=== PATIENT | male | born 1980 | race Caucasian/White ===

== ENCOUNTER 2019-05-24 11:04 | Emergency (ER) | payer SELFPAY ==
[~2019-05-24] VITALS: Ht 185 cm; Wt 113.6 kg
[2019-05-24 11:50] LABS: HEMATOCRIT 44 % (40-54); HEMOGLOBIN 14.9 G/DL (13.3-17.7); MEAN CORPUSCULAR HEMOGLOBIN 31 PG (25-34); MEAN CORPUSCULAR HGB CONC 34 G/DL (32-36); MEAN CORPUSCULAR VOLUME 91 FL (80-99); PLATELET COUNT 240 10^3/uL (130-400); RED CELL DISTRIBUTION WIDTH 13.3 % (10.0-14.5); WHITE BLOOD COUNT 10.7 10^3/uL (4.3-11.0)
[2019-05-24 11:51] LABS: BILIRUBIN,URINE NEGATIVE (NEGATIVE); CLARITY,URINE CLEAR; COLOR,URINE YELLOW; GLUCOSE, URINE (UA) NEGATIVE (NEGATIVE); KETONES,URINE NEGATIVE (NEGATIVE); LEUKOCYTE ESTERASE ,URINE NEGATIVE (NEGATIVE); NITRITE,URINE NEGATIVE (NEGATIVE); PROTEIN,URINE NEGATIVE (NEGATIVE); UROBILINOGEN,URINE 0.2 MG/DL (NORMAL)
[2019-05-24 11:51] LABS: BASOPHILS # (AUTO) 0.1 10^3/uL (0.0-0.1); BASOPHILS % (AUTO) 1 % (0-10); EOSINOPHILS # (AUTO) 0.2 10^3/uL (0.0-0.3); EOSINOPHILS % (AUTO) 2 % (0-10); LYMPHOCYTES # (AUTO) 2.3 X 10^3 (1.0-4.0); LYMPHOCYTES % (AUTO) 22 % (12-44); MEAN PLATELET VOLUME 10.6 FL (7.4-10.4); MONOCYTES # (AUTO) 0.9 X 10^3 (0.0-1.0); MONOCYTES % (AUTO) 9 % (0-12); NEUTROPHILS # (AUTO) 7.1 X 10^3 (1.8-7.8); NEUTROPHILS % (AUTO) 66 % (42-75)
[2019-05-24 11:52] LABS: BACTERIA,URINE NEGATIVE /HPF; RBC,URINE RARE /HPF; SQUAMOUS EPITHELIAL CELL,UR RARE /HPF; WBC,URINE RARE /HPF
[2019-05-24 12:09] LABS: POTASSIUM 4.4 MMOL/L (3.6-5.0)
[2019-05-24 12:10] LABS: CALCIUM 9.3 MG/DL (8.5-10.1); CREATININE SERUM 1.4 MG/DL (0.60-1.30)
[2019-05-24] MEDS ORDERED: KETOROLAC 30 MG/ML VIAL IVP ONE (12:15)
[2019-05-24] MEDS ORDERED: ONDANSETRON 4 MG/2 ML (SDV) Z0FRAN IVP ONE ×2 (12:15→13:45)
[2019-05-24] MEDS ORDERED: HOLD METFORMIN - RECEIVED CONTRAST 20 ML VIAL IV SCH (13:15)
[2019-05-24] MEDS ORDERED: IOHEXOL 350 MG/ML 100 ML (OMNIPAQUE 350) VIAL IV ONE (13:15)
[2019-05-24] MEDS ORDERED: NS 100 ML (IVPB) BAG IV ONE (13:15)
[2019-05-24] MEDS ORDERED: CATHETER FLUSH 10 ML SYR IV PRN (13:15)
[2019-05-24] MEDS ORDERED: morphine INJ 10 MG/ML 1ML (SYR OR VIAL) IVP STA (13:38)
--- NOTE | 2019-05-24 13:48 | Diagnostic Imaging Report ---
PROCEDURE: CT abdomen and pelvis with and without contrast. TECHNIQUE: Precontrast acquisitions were acquired through the abdomen and pelvis. Multiple contiguous axial images were obtained through the abdomen and pelvis after the administration of intravenous contrast. Auto Exposure Controls were utilized during the CT exam to meet ALARA standards for radiation dose reduction. INDICATION: Right flank pain. Patient reportedly has history of kidney stones. COMPARISON: No prior studies are available for comparison. FINDINGS: The lung bases are clear. No discrete liver mass is identified. The gallbladder is unremarkable. No biliary ductal dilatation is seen. The pancreas and spleen are unremarkable. No adrenal mass is detected. There are numerous bilateral nonobstructing renal calculi measuring 3-4 mm in size. In addition, there is moderate right-sided hydroureteronephrosis. The dilated right ureter is traced into the pelvis where there is a 3-4 mm calculus in the distal right ureter just above the UVJ. Delayed images demonstrate delayed excretion of contrast into the right renal collecting system and right ureter consistent with high-grade obstruction. No definite bladder calculi are seen. Aorta is nonaneurysmal. The small and large bowel loops are normal caliber. There is no ascites. Bony structures are nonacute. IMPRESSION: Bilateral nonobstructing nephrolithiasis. In addition, there is a 3-4 mm distal right ureteric calculus producing moderate hydroureteronephrosis. Dictated by: Dictated on workstation # [id number]
--- NOTE | 2019-05-24 14:53 | ED Back Pain ---
General Chief Complaint: Back Problems Stated Complaint: RT FLANK PAIN Nursing Triage Note: RT FLANK PAIN STARTED ABOUT 0200. HX OF A STONE 6 MONTHS AGO. Nursing Sepsis Screen: No Definite Risk Source of Information: Patient Exam Limitations: No Limitations History of Present Illness Date Seen by Provider: May 24, 2019 Time Seen by Provider: 13:00 Initial Comments Patient is a 38-year-old male with history of kidney stones who presents with abrupt onset of right flank pain radiating to right groin. Symptom onset was several hours prior to arrival. Pain is described as dull throbbing rated moderate to severe. It is not improved with position change or movement. Reports nausea without vomiting. No urinary frequency urgency hematuria or dysuria. No fever chills or sweats. No other acute symptoms or complaints. Patient states he has been able to pass prior kidney stones at home and has not required any surgical intervention. Timing/Duration: 1 Hour, 1-3 Hours Severity: Moderate Allergies and Home Medications Allergies Coded Allergies: No Known Drug Allergies (Unverified , 05/24/19) Patient Home Medication List Home Medication List Reviewed: Yes Review of Systems Constitutional: see HPI EENTM: see HPI Respiratory: see HPI Cardiovascular: see HPI Gastrointestinal: see HPI Genitourinary: see HPI Musculoskeletal: see HPI Skin: see HPI Psychiatric/Neurological: See HPI Past Mdjcjfi-Lmnyzb-Ulaivb Hx Past Med/Social Hx: Reviewed Nursing Past Med/Soc Hx Patient Social History Alcohol Use: Denies Use Recreational Drug Use: No Smoking Status: Current Everyday Smoker Type Used: Cigarettes 2nd Hand Smoke Exposure: No Recent Foreign Travel: No Contact w/Someone Who Travel: No Recent Infectious Disease Expo: No Recent Hopitalizations: No Physical Abuse: No Sexual Abuse: No Mistreated: No Fear: No Seasonal Allergies Seasonal Allergies: No Past Medical History Surgeries: No Respiratory: No Cardiac: No Neurological: No Genitourinary: No Gastrointestinal: No Musculoskeletal: No Endocrine: No HEENT: No Cancer: No Psychosocial: No Integumentary: No Blood Disorders: No Physical Exam Vital Signs Vital Signs - First Documented 05/24/19 11:10 Temp 36.8 Pulse 84 Resp 18 B/P (MAP) 144/48 O2 Delivery Room Air Capillary Refill : Less Than 3 Seconds Height, Weight, BMI Height: '" Weight: lbs. oz. kg; 33.00 BMI Method: General Appearance: WD/WN, Moderate Distress HEENT: PERRL/EOMI, Pharynx Normal Neck: Non Tender Cardiovascular: Regular Rate, Rhythm, No Edema Respiratory: Chest Non Tender, Lungs Clear Gastrointestinal: Non Tender, Soft Back: Normal Inspection, No CVA Tenderness, No Vertebral Tenderness Neurologic/Psychiatric: Alert, Oriented x3 Skin: Normal Color, Warm/Dry Progress/Results/Core Measures Results/Orders Lab Results Laboratory Tests Test 05/24/19 11:08 05/24/19 11:35 Range/Units Urine Color YELLOW Urine Clarity CLEAR Urine pH 6.0 5-9 Urine Specific [place] 1.025 H 1.016-1.022 Urine Protein NEGATIVE NEGATIVE Urine Glucose (UA) NEGATIVE NEGATIVE Urine Ketones NEGATIVE NEGATIVE Urine Nitrite NEGATIVE NEGATIVE Urine Bilirubin NEGATIVE NEGATIVE Urine Urobilinogen 0.2 NORMAL MG/DL Urine Leukocyte Esterase NEGATIVE NEGATIVE Urine RBC (Auto) NEGATIVE NEGATIVE Urine RBC RARE /HPF Urine WBC RARE /HPF Urine Squamous Epithelial Cells RARE /HPF Urine Crystals NONE /LPF Urine Bacteria NEGATIVE /HPF Urine Casts NONE /LPF Urine Mucus SMALL H /LPF Urine Culture Indicated NO White Blood Count 10.7 4.3-11.0 10^3/uL Red Blood Count 4.88 4.35-5.85 10^6/uL Hemoglobin 14.9 13.3-17.7 G/DL Hematocrit 44 40-54 % Mean Corpuscular Volume 91 80-99 FL Mean Corpuscular Hemoglobin 31 25-34 PG Mean Corpuscular Hemoglobin Concent 34 32-36 G/DL Red Cell Distribution Width 13.3 10.0-14.5 % Platelet Count 240 130-400 10^3/uL Mean Platelet Volume 10.6 H 7.4-10.4 FL Neutrophils (%) (Auto) 66 42-75 % Lymphocytes (%) (Auto) 22 12-44 % Monocytes (%) (Auto) 9 0-12 % Eosinophils (%) (Auto) 2 0-10 % Basophils (%) (Auto) 1 0-10 % Neutrophils # (Auto) 7.1 1.8-7.8 X 10^3 Lymphocytes # (Auto) 2.3 1.0-4.0 X 10^3 Monocytes # (Auto) 0.9 0.0-1.0 X 10^3 Eosinophils # (Auto) 0.2 0.0-0.3 10^3/uL Basophils # (Auto) 0.1 0.0-0.1 10^3/uL Sodium Level 138 135-145 MMOL/L Potassium Level 4.4 3.6-5.0 MMOL/L Chloride Level 102 98-107 MMOL/L Carbon Dioxide Level 22 21-32 MMOL/L Anion Gap 14 5-14 MMOL/L Blood Urea Nitrogen 19 H 7-18 MG/DL Creatinine 1.40 H 0.60-1.30 MG/DL Estimat Glomerular Filtration Rate 57 BUN/Creatinine Ratio 14 Glucose Level 107 H 70-105 MG/DL Calcium Level 9.3 8.5-10.1 MG/DL My Orders Orders - CRUZ AGEE DO Urinalysis (05/24/19 11:33) Cbc With Automated Diff (05/24/19 11:39) Basic Metabolic Panel (05/24/19 11:39) Ondansetron Injection (Zofran Injectio (05/24/19 12:15) Ketorolac Injection (Toradol Injection) (05/24/19 12:15) Ct Abdomen/Pelvis W Wo (05/24/19 12:59) Iohexol Injection (Omnipaque 350 Mg/Ml 1 (05/24/19 13:15) Received Contrast (Hold Metformin- Contr (05/24/19 13:15) Sodium Chloride Flush (Catheter Flush Sy (05/24/19 13:15) Ns (Ivpb) (Sodium Chloride 0.9% Ivpb Bag (05/24/19 13:15) Morphine Injection (Morphine Injection (05/24/19 13:38) Ondansetron Injection (Zofran Injectio (05/24/19 13:45) Medications Given in ED Current Medications Medications Dose Ordered Sig/Glendy Route Start Time Stop Time Status Last Admin Dose Admin Iohexol 100 ml ONCE ONCE IV 05/24/19 13:15 05/24/19 13:16 DC 05/24/19 13:25 100 ML Ketorolac Tromethamine 15 mg ONCE ONCE IVP 05/24/19 12:15 05/24/19 12:16 DC 05/24/19 12:15 15 MG Ondansetron HCl 4 mg ONCE ONCE IVP 05/24/19 12:15 05/24/19 12:16 DC 05/24/19 12:14 4 MG Ondansetron HCl 4 mg ONCE ONCE IVP 05/24/19 13:45 05/24/19 13:46 DC 05/24/19 14:24 4 MG Sodium Chloride 10 ml NEEDED PRN IV 05/24/19 13:15 05/24/19 13:25 10 ML Sodium Chloride 100 ml ONCE ONCE IV 05/24/19 13:15 05/24/19 13:16 DC 05/24/19 13:25 80 ML Vital Signs/I&O 05/24/19 11:10 Temp 36.8 Pulse 84 Resp 18 B/P (MAP) 144/48 O2 Delivery Room Air Blood Pressure Mean: 80 Departure Communication (Admissions) CT abdomen and pelvis and labs reviewed. 3-4 mm right ureteral stone with moderate hydroureter noted. Patient's symptoms well-controlled with treatment. Recommend supportive care, watchful waiting PCP/urology follow-up as needed. Impression Primary Impression: Back pain Additional Impression: Ureteral stone Disposition: HOME, SELF-CARE Condition: Stable Departure-Patient Inst. Referrals: NO,LOCAL PHYSICIAN (PCP/Family) Primary Care Physician Add. Discharge Instructions: Please increase fluids, strain urine for stone, and take newly prescribed medications as directed. Follow-up with your local PCP or urologist as needed. Return to the ED if new or worsening symptoms All discharge instructions reviewed with patient and/or family. Voiced understanding. Scripts Tamsulosin HCl (Flomax) 0.4 Mg Cap 0.4 MG PO DAILY, #5 CAP Prov: CRUZ AGEE DO 05/24/19 Ondansetron (Ondansetron Odt) 4 Mg Tab.rapdis 4 MG PO Q6H, #10 TAB Prov: CRUZ AGEE DO 05/24/19 Oxycodone HCl/Acetaminophen (Percocet 10-325 mg Tablet) 1 Each Tablet 1 TAB PO Q8H PRN for PAIN-MODERATE MDD 3 TABS for 7 Days, #12 TAB Prov: CRUZ AGEE DO 05/24/19 CRUZ AGEE DO May 24, 2019 14:53
[2019-05-24] MEDS ORDERED: TAMS0.4C98 PO (14:55)
[2019-05-24] MEDS ORDERED: ONDA4TAB11 PO (14:55)
[2019-05-24] MEDS ORDERED: OXYC1TAB12 PO (14:55)
[2019-05-24 15:08] VITALS: BP 131/78
== END 2019-05-24 15:10 | disposition home or self-care (01) ==
LOC: ER FS 11:06
DX: N13.2 Hydronephrosis with renal and ureteral calculous obstruction (principal); F17.210 Nicotine dependence, cigarettes, uncomplicated
CPT/HCPCS: 36415; 74178; 80048; 81000; 85025

== ENCOUNTER 2019-05-26 21:36 | Emergency (ER) | payer SELFPAY ==
[~2019-05-26] VITALS: Ht 187.9 cm; Wt 114.0 kg
[~2019-05-26 21:36] MED LIST: ONDA4TAB11 PO; OXYC1TAB12 PO; TAMS0.4C98 PO
--- NOTE | 2019-05-26 22:09 | ED Abdominal Pain ---
General Chief Complaint: - Urinary Stated Complaint: LOW BACK PAIN, FEVER, TESTICULAR PAIN Source of Information: Patient Exam Limitations: No Limitations History of Present Illness Date Seen by Provider: May 26, 2019 Time Seen by Provider: 21:55 Initial Comments The patient is a pleasant 38-year-old male who presents for evaluation of right flank pain, nausea, and fever. He states that he was diagnosed with a kidney stone 2 days ago and that he was seen in this emergency department. He reports subjective fevers at home as well as waxing and waning pain and nausea. He denies any difficulty urinating. He is alert and oriented 4, calm, and appears to be in no distress. He reports that he was having some radiation of pain to his testicles since his pain began but that he currently has none. He denies any penile discomfort. He had no testicular swelling or redness at any point. He denies gross hematuria, chest pain or shortness of breath, current abdominal pain, current testicular pain, penile discharge, or decreased urination. Timing/Duration: 2-3 Days Severity/Quality: Moderate Location: Flank (right) Radiation: No Radiation Activities at Onset: None Modifying Factors: Improves With Analgesics (help slightly) Associated Symptoms: Nausea/Vomiting Allergies and Home Medications Allergies Coded Allergies: No Known Drug Allergies (Unverified , 05/24/19) Home Medications Ondansetron 4 Mg Tab.rapdis, 4 MG PO Q6H Prescribed by: CRUZ AGEE on 05/24/19 1455 Oxycodone HCl/Acetaminophen 1 Each Tablet, 1 TAB PO Q8H PRN for PAIN-MODERATE Prescribed by: CRUZ AGEE on 05/24/19 1455 Tamsulosin HCl 0.4 Mg Cap, 0.4 MG PO DAILY Prescribed by: CRUZ AGEE on 05/24/19 1455 Patient Home Medication List Home Medication List Reviewed: Yes Review of Systems Review of Systems Constitutional: no symptoms reported EENTM: No Symptoms Reported Respiratory: No Symptoms Reported Cardiovascular: No Symptoms Reported Gastrointestinal: Nausea Genitourinary: Other (testicular discomfort earlier, denies now) Musculoskeletal: back pain (right flank) Skin: no symptoms reported Psychiatric/Neurological: No Symptoms Reported Endocrine: No Symptoms Reported Hematologic/Lymphatic: No Symptoms Reported All Other Systems Reviewed Negative Unless Noted: Yes Past Yippiig-Wcrpqd-Afiqwn Hx Past Med/Social Hx: Reviewed Nursing Past Med/Soc Hx Patient Social History Type Used: Cigarettes 2nd Hand Smoke Exposure: No Recent Foreign Travel: No Contact w/Someone Who Travel: No Recent Hopitalizations: No Seasonal Allergies Seasonal Allergies: No Past Medical History Surgeries: No Respiratory: No Cardiac: No Neurological: No Genitourinary: No Gastrointestinal: No Musculoskeletal: No Endocrine: No HEENT: No Cancer: No Psychosocial: No Integumentary: No Blood Disorders: No Physical Exam Vital Signs Vital Signs - First Documented 05/26/19 22:25 Temp 36.7 Pulse 99 Resp 18 B/P (MAP) 154/95 (114) Pulse Ox 96 O2 Delivery Room Air Capillary Refill : Height/Weight/BMI Height: '" Weight: lbs. oz. 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, no motor/sensory deficits, alert, normal mood/affect, oriented x 3 Skin: normal color, warm/dry Progress/Results/Core Measures Results/Orders Lab Results Laboratory Tests Test 05/26/19 22:15 Range/Units White Blood Count 10.2 4.3-11.0 10^3/uL Red Blood Count 4.95 4.35-5.85 10^6/uL Hemoglobin 15.1 13.3-17.7 G/DL Hematocrit 45 40-54 % Mean Corpuscular Volume 90 80-99 FL Mean Corpuscular Hemoglobin 31 25-34 PG Mean Corpuscular Hemoglobin Concent 34 32-36 G/DL Red Cell Distribution Width 13.3 10.0-14.5 % Platelet Count 227 130-400 10^3/uL Mean Platelet Volume 10.8 H 7.4-10.4 FL Neutrophils (%) (Auto) 72 42-75 % Lymphocytes (%) (Auto) 19 12-44 % Monocytes (%) (Auto) 6 0-12 % Eosinophils (%) (Auto) 2 0-10 % Basophils (%) (Auto) 1 0-10 % Neutrophils # (Auto) 7.3 1.8-7.8 X 10^3 Lymphocytes # (Auto) 2.0 1.0-4.0 X 10^3 Monocytes # (Auto) 0.6 0.0-1.0 X 10^3 Eosinophils # (Auto) 0.2 0.0-0.3 10^3/uL Basophils # (Auto) 0.1 0.0-0.1 10^3/uL Urine Color YELLOW Urine Clarity CLEAR Urine pH 7.0 5-9 Urine Specific [place] 1.025 H 1.016-1.022 Urine Protein NEGATIVE NEGATIVE Urine Glucose (UA) NEGATIVE NEGATIVE Urine Ketones NEGATIVE NEGATIVE Urine Nitrite NEGATIVE NEGATIVE Urine Bilirubin NEGATIVE NEGATIVE Urine Urobilinogen 0.2 NORMAL MG/DL Urine Leukocyte Esterase NEGATIVE NEGATIVE Urine RBC (Auto) NEGATIVE NEGATIVE Urine RBC 0-2 /HPF Urine WBC 0-2 /HPF Urine Squamous Epithelial Cells RARE /HPF Urine Crystals NONE /LPF Urine Bacteria NEGATIVE /HPF Urine Casts NONE /LPF Urine Mucus NEGATIVE /LPF Urine Culture Indicated NO Sodium Level 135 135-145 MMOL/L Potassium Level 4.0 3.6-5.0 MMOL/L Chloride Level 98 98-107 MMOL/L Carbon Dioxide Level 23 21-32 MMOL/L Anion Gap 14 5-14 MMOL/L Blood Urea Nitrogen 17 7-18 MG/DL Creatinine 1.46 H 0.60-1.30 MG/DL Estimat Glomerular Filtration Rate 55 BUN/Creatinine Ratio 12 Glucose Level 144 H 70-105 MG/DL Calcium Level 9.3 8.5-10.1 MG/DL Corrected Calcium 9.2 8.5-10.1 MG/DL Total Bilirubin 0.3 0.1-1.0 MG/DL Aspartate Amino Transf (AST/SGOT) 21 5-34 U/L Alanine Aminotransferase (ALT/SGPT) 24 0-55 U/L Alkaline Phosphatase 70 40-136 U/L Total Protein 7.5 6.4-8.2 GM/DL Albumin 4.1 3.2-4.5 GM/DL Lipase 13 8-78 U/L My Orders Orders - ERIBERTO ZAZUETA DO Ua Culture If Indicated (05/26/19 21:52) Cbc With Automated Diff (05/26/19 22:02) Comprehensive Metabolic Panel (05/26/19 22:02) Ed Iv/Invasive Line Start (05/26/19 22:02) Lipase (05/26/19 22:02) Ct Abdomen/Pelvis Wo (05/26/19 22:02) Ns Iv 1000 Ml (Sodium Chloride 0.9%) (05/26/19 22:15) Tamsulosin Capsule (Flomax Capsule) (05/27/19 18:00) Ketorolac Injection (Toradol Injection) (05/26/19 22:15) Ondansetron Injection (Zofran Injectio (05/26/19 22:15) Tamsulosin Capsule (Flomax Capsule) (05/26/19 22:37) Medications Given in ED Current Medications Medications Dose Ordered Sig/Glendy Route Start Time Stop Time Status Last Admin Dose Admin Ketorolac Tromethamine 30 mg ONCE ONCE IVP 05/26/19 22:15 05/26/19 22:16 DC 05/26/19 22:20 30 MG Ondansetron HCl 4 mg ONCE ONCE IVP 05/26/19 22:15 05/26/19 22:16 DC 05/26/19 22:20 4 MG Vital Signs/I&O 05/26/19 22:25 Temp 36.7 Pulse 99 Resp 18 B/P (MAP) 154/95 (114) Pulse Ox 96 O2 Delivery Room Air 05/27/19 00:00 Intake Total 1000 ml Balance 1000 ml Progress Progress Note : Progress Note @0039 - patient updated on lab and imaging results which do not suggest any infection. He has a right-sided 4 mm stone which is 1.2 cm from the UV junction. This is causing moderate hydronephrosis. The patient states that he is feeling better on like to go home. Advise close follow-up with his urologist and her PCP and return to the emergency Department immediately for new or worsening symptoms. The patient is stable for discharge at this time. Departure Impression Primary Impression: Ureteral calculus, right Additional Impression: Nausea Disposition: 01 HOME, SELF-CARE Condition: Stable Departure-Patient Inst. Decision time for Depature: 00:40 Referrals: NO,LOCAL PHYSICIAN (PCP/Family) Primary Care Physician Patient Instructions: Kidney Stones in Adults Add. Discharge Instructions: Follow-up with your PCP and/or urology in the next 1-2 days. Return to the emergency Department immediately for new or worsening symptoms. Take the prescribed medicine as directed. ERIBERTO ZAZUETA DO May 26, 2019 22:09
[2019-05-26] MEDS ORDERED: NS IV 1000 ML 1,000 ML IV SCH (22:15)
[2019-05-26] MEDS ORDERED: ONDANSETRON 4 MG/2 ML (SDV) Z0FRAN IVP ONE (22:15)
[2019-05-26] MEDS ORDERED: KETOROLAC 30 MG/ML VIAL IVP ONE (22:15)
[2019-05-26 22:28] LABS: HEMATOCRIT 45 % (40-54); HEMOGLOBIN 15.1 G/DL (13.3-17.7); MEAN CORPUSCULAR HEMOGLOBIN 31 PG (25-34); MEAN CORPUSCULAR VOLUME 90 FL (80-99); WHITE BLOOD COUNT 10.2 10^3/uL (4.3-11.0)
[2019-05-26 22:29] LABS: BASOPHILS # (AUTO) 0.1 10^3/uL (0.0-0.1); BASOPHILS % (AUTO) 1 % (0-10); CLARITY,URINE CLEAR; COLOR,URINE YELLOW; EOSINOPHILS # (AUTO) 0.2 10^3/uL (0.0-0.3); EOSINOPHILS % (AUTO) 2 % (0-10); LYMPHOCYTES % (AUTO) 19 % (12-44); MEAN CORPUSCULAR HGB CONC 34 G/DL (32-36); MEAN PLATELET VOLUME 10.8 FL (7.4-10.4); MONOCYTES # (AUTO) 0.6 X 10^3 (0.0-1.0); MONOCYTES % (AUTO) 6 % (0-12); NEUTROPHILS # (AUTO) 7.3 X 10^3 (1.8-7.8); NEUTROPHILS % (AUTO) 72 % (42-75); PLATELET COUNT 227 10^3/uL (130-400); RED CELL DISTRIBUTION WIDTH 13.3 % (10.0-14.5)
[2019-05-26 22:35] LABS: GLUCOSE, URINE (UA) NEGATIVE (NEGATIVE); PROTEIN,URINE NEGATIVE (NEGATIVE)
[2019-05-26 22:36] LABS: BACTERIA,URINE NEGATIVE /HPF; BILIRUBIN,URINE NEGATIVE (NEGATIVE); KETONES,URINE NEGATIVE (NEGATIVE); LEUKOCYTE ESTERASE ,URINE NEGATIVE (NEGATIVE); NITRITE,URINE NEGATIVE (NEGATIVE); RBC,URINE 0-2 /HPF; SQUAMOUS EPITHELIAL CELL,UR RARE /HPF; UROBILINOGEN,URINE 0.2 MG/DL (NORMAL); WBC,URINE 0-2 /HPF
[2019-05-26] MEDS ORDERED: TAMSULOSIN 0.4 MG (FLOMAX) CAP PO ONE (22:37)
[2019-05-26 22:48] LABS: ALBUMIN 4.1 GM/DL (3.2-4.5); BILIRUBIN,TOTAL 0.3 MG/DL (0.1-1.0); CALCIUM 9.3 MG/DL (8.5-10.1); CREATININE SERUM 1.46 MG/DL (0.60-1.30); TOTAL PROTEIN 7.5 GM/DL (6.4-8.2)
[2019-05-27 00:47] VITALS: BP 136/88
--- NOTE | 2019-05-27 06:15 | Diagnostic Imaging Report ---
PROCEDURE: CT abdomen and pelvis without contrast. TECHNIQUE: Multiple contiguous axial images were obtained through the abdomen and pelvis without the use of intravenous contrast. Auto Exposure Controls were utilized during the CT exam to meet ALARA standards for radiation dose reduction. INDICATION: Right-sided pain The recent CT abdomen/pelvis exam of 05/24/2019 noted that there was partial obstruction of the right collecting system due to a 3.1 mm calculus in the distal right ureter. It previously also revealed nonobstructive calculi within both kidneys. On this exam, the obstructive calculus involving the distal right ureter now measures approximately 4 mm in size. The reason for the change in the size of this calculus is not certain. There does not appear to be any significant change in the degree of obstruction of the right collecting system, however. There has been no increase in the perinephric stranding or of the dilatation of the right renal pelvis since the prior exam. The left kidney is stable as well. The overall appearance of the abdomen and pelvis is also essentially no different than the prior exam. No new abnormality has developed. The lung bases remain clear. The bone windows show no evidence for a fracture or for a destructive lesion. IMPRESSION: 1. The obstructing calculus involving the distal right ureter seen on the recent exam is again evident. The calculus does measure slightly larger than on the prior study but there does not appear to have been any significant increase in the degree of obstruction of the right collecting system. 2. There is no acute abnormality identified otherwise. Dictated by: Dictated on workstation # [id number]
[2019-05-27] MEDS ORDERED: TAMSULOSIN 0.4 MG (FLOMAX) CAP PO SCH (18:00)
== END 2019-05-27 00:46 | disposition home or self-care (01) ==
LOC: EDUNIT# 21:36 → ER FS 21:38
DX: N13.2 Hydronephrosis with renal and ureteral calculous obstruction (principal); R11.0 Nausea
CPT/HCPCS: 36415; 74176; 80053; 81000; 83690; 85025; 96361; 96374; 96375

== ENCOUNTER 2019-12-26 19:53 | Emergency (ER) | payer SELFPAY ==
[~2019-12-26 19:53] MED LIST changes: -TAMS0.4C98 PO; +TMSL.4C PO
--- NOTE | 2019-12-26 20:21 | ED Cough/URI ---
General Chief Complaint: Cough/Cold/Flu Symptoms Stated Complaint: COUGH Nursing Triage Note: Patient states that he has been having a cough and shortness of breath about a week. Patient also states that he is coughing up green thick mucus. Patient does not report a fever but does report a headache behind the eyes. Sepsis Screen: No Definite Risk History of Present Illness Date Seen by Provider: Dec 26, 2019 Time Seen by Provider: 20:25 Initial Comments Patient is an otherwise healthy 39-year-old male who comes to the emergency department today complaining of suspected sinusitis. Patient states he has these symptoms about 2-3 times annually. He complains of feeling ill over the last week. He has had a cough which has sometimes been productive. He complains of sinus pain over the frontal and maxillary sinuses as well as postnasal drip. No documented fever but he has had some chills. No recent travel. No known COVID exposure that he is aware of. Allergies and Home Medications Allergies Coded Allergies: codeine (Verified Allergy, Intermediate, 12/26/19) erythromycin base (Verified Allergy, Unknown, 12/26/19) Home Medications Amoxicillin/Potassium Clav 1 Each Tablet, 1 EACH PO BID Prescribed by: DONAVAN THOMAS on 12/26/192023 Ondansetron 4 Mg Tab.rapdis, 4 MG PO Q6H Prescribed by: CRUZ AGEE on 05/24/19 145 Oxycodone HCl/Acetaminophen 1 Each Tablet, 1 TAB PO Q8H PRN for PAIN-MODERATE Prescribed by: CRUZ AGEE on 05/24/19 145 Tamsulosin HCl 0.4 Mg Cap, 0.4 MG PO DAILY Prescribed by: CRUZ AGEE on 05/24/19 1455 Patient Home Medication List Home Medication List Reviewed: Yes Review of Systems Review of Systems Constitutional: see HPI EENTM: see HPI Respiratory: see HPI Cardiovascular: no symptoms reported Gastrointestinal: no symptoms reported Musculoskeletal: no symptoms reported Skin: no symptoms reported All Other Systems Reviewed Negative Unless Noted: Yes Past Khljmff-Jpikdo-Stciyr Hx Patient Social History Alcohol Use: Denies Use Recreational Drug Use: No Smoking Status: Current Everyday Smoker Type Used: Cigarettes 2nd Hand Smoke Exposure: No Recent Foreign Travel: No Contact w/Someone Who Travel: No Recent Infectious Disease Expo: No Recent Hopitalizations: No Physical Abuse: No Sexual Abuse: No Mistreated: No Fear: No Seasonal Allergies Seasonal Allergies: No Past Medical History Surgeries: No Respiratory: No Cardiac: No Neurological: No Genitourinary: No Gastrointestinal: No Musculoskeletal: No Endocrine: No HEENT: No Cancer: No Psychosocial: No Integumentary: No Blood Disorders: No Physical Exam Vital Signs - First Documented 12/26/19 19:53 Temp 36.4 Pulse 113 Resp 20 B/P (MAP) 133/90 (104) Pulse Ox 95 O2 Delivery Room Air Capillary Refill : Less Than 3 Seconds Height: '" Weight: lbs. oz. 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, alert, normal mood/affect, oriented x 3 Skin: normal color Progress/Results/Core Measures Suspected Sepsis Recent Fever Within 48 Hours: No Infection Criteria Present: Suspected New Infection New/Unexplained Altered Menta: No Sepsis Screen: No Definite Risk SIRS Temperature: Pulse: 113 Respiratory Rate: 20 Blood Pressure 133 /90 Mean: 104 Results/Orders My Orders Orders - DONAVAN THOMAS DO Amoxicillin/Clavulanate Tablet (Augmenti (12/26/19 20:30) Vital Signs/I&O 12/26/19 19:53 Temp 36.4 Pulse 113 Resp 20 B/P (MAP) 133/90 (104) Pulse Ox 95 O2 Delivery Room Air Capillary Refill : Less Than 3 Seconds Blood Pressure Mean: 104 Progress Note : Time: 20:27 Progress Note ED summary: Patient is seen in the emergency department briefly for sinusitis- like symptoms. His lungs are clear with no increased work of breathing and good air movement in all mukherjee. He does have some tenderness to palpate over the frontal and maxillary sinuses. Posterior oropharynx does reveal some postnasal drip but no exudates are tonsillar hypertrophy. Patient is overall not ill- appearing and afebrile this evening. He is normally treated with amoxicillin for sinusitis. He is given a dose of Augmentin in the ER and discharged home with the same. Recommended that he follow up with his primary care doctor. Departure Impression Primary Impression: Sinusitis Disposition: HOME, SELF-CARE Condition: Stable Departure-Patient Inst. Referrals: NO,LOCAL PHYSICIAN (PCP/Family) Primary Care Physician Scripts Amoxicillin/Potassium Clav (Augmentin 875-125 Tablet) 1 Each Tablet 1 EACH PO BID, #20 TAB 0 Refills Prov: DONAVAN THOMAS DO 12/26/19 DONAVAN THOMAS DO Dec 26, 2019 20:21
[2019-12-26] MEDS ORDERED: AMOX-358 PO (20:24)
[2019-12-26] MEDS ORDERED: AUGMENTIN 875 MG TAB (AMOXICILLIN/CLAVULANATE) PO ONE (20:30)
[2019-12-26 20:31] VITALS: BP 133/90
== END 2019-12-26 20:31 | disposition home or self-care (01) ==
LOC: EDUNIT# 19:53 → ER FS 19:55
DX: J32.9 Chronic sinusitis, unspecified (principal); F17.210 Nicotine dependence, cigarettes, uncomplicated; Z88.5 Allergy status to narcotic agent; Z88.1 Allergy status to other antibiotic agents
CPT/HCPCS: 99283

== ENCOUNTER 2020-06-08 08:38 | Emergency (ER) | payer SELFPAY ==
[~2020-06-08 08:38] MED LIST changes: +AMOX-358 PO
[2020-06-08] MEDS ORDERED: NS IV 1000 ML 1,000 ML IV SCH (09:00)
--- NOTE | 2020-06-08 09:09 | Diagnostic Imaging Report ---
INDICATION: Exertional dyspnea and dizziness Portable AP view of the chest is obtained. COMPARISON: No previous study is available for comparison at this time. FINDINGS: Heart size and pulmonary vasculature are within normal limits, and the lungs are clear, bilaterally. IMPRESSION: Unremarkable chest. Dictated by: Dictated on workstation # [id number]
[2020-06-08 09:10] VITALS: BP_SYST 128; BP_SYST 129; BP_SYST 131; BP_DIAS 74; BP_DIAS 86; BP_DIAS 89
[2020-06-08 09:17] LABS: WHITE BLOOD COUNT 5.5 10^3/uL (4.3-11.0)
[2020-06-08 09:18] LABS: BASOPHILS % (AUTO) 1 % (0-10); EOSINOPHILS # (AUTO) 0.2 10^3/uL (0.0-0.3); EOSINOPHILS % (AUTO) 3 % (0-10); HEMATOCRIT 45 % (40-54); HEMOGLOBIN 15.1 G/DL (13.3-17.7); LYMPHOCYTES # (AUTO) 1.9 X 10^3 (1.0-4.0); LYMPHOCYTES % (AUTO) 35 % (12-44); MEAN CORPUSCULAR HEMOGLOBIN 30 PG (25-34); MEAN CORPUSCULAR HGB CONC 33 G/DL (32-36); MEAN CORPUSCULAR VOLUME 91 FL (80-99); MEAN PLATELET VOLUME 10.9 FL (7.4-10.4); MONOCYTES # (AUTO) 0.6 X 10^3 (0.0-1.0); MONOCYTES % (AUTO) 11 % (0-12); NEUTROPHILS # (AUTO) 2.6 X 10^3 (1.8-7.8); NEUTROPHILS % (AUTO) 50 % (42-75); PLATELET COUNT 261 10^3/uL (130-400)
--- NOTE | 2020-06-08 09:19 | ED General ---
General Chief Complaint: Dizziness/Syncope Stated Complaint: LIGHT-HEADED; DIZZY; SOB; ALTERED VISION Nursing Triage Note: Started feeling dizzy and lightheaded yesterday. States he has had issues with blood pressure and blood sugar in the past. Denies nausea or vomiting, or fevers. Nursing Sepsis Screen: No Definite Risk Source of Information: Patient Exam Limitations: No Limitations History of Present Illness Date Seen by Provider: Jun 08, 2020 Time Seen by Provider: 08:48 Initial Comments The patient is a pleasant 40-year-old male who presents for evaluation of lightheadedness and some general malaise since yesterday. He reports some exertional dyspnea which she states is new over the last few days. He also states that he has been having issues with his blood pressure and his blood sugar. He reports that he normally only eats food one time per day and that this has not recently changed. He thought that his blood sugar might be low today so he drank some orange juice to see if this would help. His Accu-Chek upon arrival is 116. He reports that he has been told that he has hypertension in the past but has never been prescribed medication. He reports some slightly blurred vision yesterday but none currently. He is alert and oriented 4, calm, and appears to be in no distress. He denies rigors or chills, neck pain or neck stiffness, loss of taste or smell, productive cough, abdominal or back pain, urinary complaints, Timing/Duration: 1-2 Days Severity: Mild Associated Systoms: Shortness of Air, Weakness Allergies and Home Medications Allergies Coded Allergies: codeine (Verified Allergy, Intermediate, 12/26/19) erythromycin base (Verified Allergy, Unknown, 12/26/19) Home Medications Amoxicillin/Potassium Clav 1 Each Tablet, 1 EACH PO BID Prescribed by: DONAVAN THOMAS on 12/26/192023 Ondansetron 4 Mg Tab.rapdis, 4 MG PO Q6H Prescribed by: CRUZ AGEE on 05/24/191454 Oxycodone HCl/Acetaminophen 1 Each Tablet, 1 TAB PO Q8H PRN for PAIN-MODERATE Prescribed by: CRUZ AGEE on 05/24/191454 Tamsulosin HCl 0.4 Mg Cap, 0.4 MG PO DAILY Prescribed by: CRUZ AGEE on 05/24/191454 Patient Home Medication List Home Medication List Reviewed: Yes Review of Systems Review of Systems Constitutional: dizziness, weakness EENTM: no symptoms reported Respiratory: cough (chronic ), short of breath Cardiovascular: no symptoms reported Gastrointestinal: no symptoms reported Genitourinary: no symptoms reported Musculoskeletal: no symptoms reported Skin: no symptoms reported Psychiatric/Neurological: No Symptoms Reported Hematologic/Lymphatic: No Symptoms Reported Immunological/Allergic: no symptoms reported All Other Systems Reviewed Negative Unless Noted: Yes Past Tnuwtti-Ykjeky-Pefdjh Hx Past Med/Social Hx: Reviewed Nursing Past Med/Soc Hx Patient Social History Alcohol Use: Denies Use Recreational Drug Use: No Smoking Status: Current Everyday Smoker Type Used: Cigarettes 2nd Hand Smoke Exposure: No Recent Foreign Travel: No Contact w/Someone Who Travel: No Recent Infectious Disease Expo: No Recent Hopitalizations: No Seasonal Allergies Seasonal Allergies: No Past Medical History Surgeries: No Respiratory: Yes (chronic cough) Cardiac: Yes Hypertension Neurological: No Genitourinary: No Gastrointestinal: No Musculoskeletal: No Endocrine: Yes (hypoglycemia) HEENT: No Cancer: No Psychosocial: No Integumentary: No Blood Disorders: No Physical Exam Vital Signs Vital Signs - First Documented 06/08/20 08:43 Temp 36.4 Pulse 87 Resp 16 B/P (MAP) 150/92 (111) Pulse Ox 96 Capillary Refill : Less Than 3 Seconds Height, Weight, BMI Height: '" Weight: lbs. oz. kg; 32.00 BMI Method: General Appearance: No Apparent Distress, WD/WN Eyes: Bilateral Eye Normal Inspection, Bilateral Eye PERRL, Bilateral Eye EOMI HEENT: PERRL/EOMI, TMs Normal, Pharynx Normal Neck: Full Range of Motion, Non Tender, Supple Respiratory: Lungs Clear, No Respiratory Distress Cardiovascular: Regular Rate, Rhythm, No Edema, No Murmur, Normal Peripheral Pulses Gastrointestinal: Normal Bowel Sounds, Non Tender, Soft Extremity: Normal Capillary Refill, Normal Inspection, Normal Range of Motion, No Pedal Edema Neurologic/Psychiatric: Alert, Oriented x3, No Motor/Sensory Deficits, Normal Mood/Affect, 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 as Tested Skin: Normal Color, Warm/Dry Progress/Results/Core Measures Suspected Sepsis Recent Fever Within 48 Hours: No Infection Criteria Present: None New/Unexplained Altered Menta: No Sepsis Screen: No Definite Risk SIRS Temperature: Pulse: 87 Respiratory Rate: 16 Laboratory Tests 9/24/20 08:59: White Blood Count 5.5 Blood Pressure 150 /92 Mean: 111 Laboratory Tests 06/08/20 08:59: Creatinine 0.93, Platelet Count 261, Total Bilirubin 0.2 Results/Orders Lab Results Laboratory Tests Test 06/08/20 08:49 06/08/20 08:59 Range/Units Glucometer 116 H 70-110 MG/DL White Blood Count 5.5 4.3-11.0 10^3/uL Red Blood Count 5.00 4.35-5.85 10^6/uL Hemoglobin 15.1 13.3-17.7 G/DL Hematocrit 45 40-54 % Mean Corpuscular Volume 91 80-99 FL Mean Corpuscular Hemoglobin 30 25-34 PG Mean Corpuscular Hemoglobin Concent 33 32-36 G/DL Red Cell Distribution Width 13.9 10.0-14.5 % Platelet Count 261 130-400 10^3/uL Mean Platelet Volume 10.9 H 7.4-10.4 FL Neutrophils (%) (Auto) 50 42-75 % Lymphocytes (%) (Auto) 35 12-44 % Monocytes (%) (Auto) 11 0-12 % Eosinophils (%) (Auto) 3 0-10 % Basophils (%) (Auto) 1 0-10 % Neutrophils # (Auto) 2.6 1.8-7.8 X 10^3 Lymphocytes # (Auto) 1.9 1.0-4.0 X 10^3 Monocytes # (Auto) 0.6 0.0-1.0 X 10^3 Eosinophils # (Auto) 0.2 0.0-0.3 10^3/uL Basophils # (Auto) 0.0 0.0-0.1 10^3/uL Sodium Level 138 135-145 MMOL/L Potassium Level 4.5 3.6-5.0 MMOL/L Chloride Level 105 98-107 MMOL/L Carbon Dioxide Level 23 21-32 MMOL/L Anion Gap 10 5-14 MMOL/L Blood Urea Nitrogen 21 H 7-18 MG/DL Creatinine 0.93 0.60-1.30 MG/DL Estimat Glomerular Filtration Rate > 60 BUN/Creatinine Ratio 23 Glucose Level 123 H 70-105 MG/DL Calcium Level 9.4 8.5-10.1 MG/DL Corrected Calcium 9.0 8.5-10.1 MG/DL Total Bilirubin 0.2 0.1-1.0 MG/DL Aspartate Amino Transf (AST/SGOT) 29 5-34 U/L Alanine Aminotransferase (ALT/SGPT) 37 0-55 U/L Alkaline Phosphatase 83 40-136 U/L Troponin I 0.30 <0.30 NG/ML Pro-B-Type Natriuretic Peptide 20.8 <75.0 PG/ML Total Protein 7.6 6.4-8.2 GM/DL Albumin 4.5 3.2-4.5 GM/DL My Orders Orders - ERIBERTO ZAZUETA DO Cbc With Automated Diff (06/08/20 08:52) Comprehensive Metabolic Panel (06/08/20 08:52) Continuous Ekg Monitoring (06/08/20 08:52) Ekg Tracing (06/08/20 08:52) Troponin I Fs (06/08/20 08:52) Probnp Fs (06/08/20 08:52) Chest 1 View Ap/Pa Only (06/08/20 08:52) Ns Iv 1000 Ml (Sodium Chloride 0.9%) (06/08/20 09:00) Vital Signs/I&O 06/08/20 06/08/20 08:43 09:10 Temp 36.4 Pulse 87 78 88 91 Resp 16 B/P (MAP) 150/92 (111) 128/74 (92) 131/86 (101) 129/89 (102) Pulse Ox 96 Capillary Refill : Less Than 3 Seconds Blood Pressure Mean: 111 Progress Note : Progress Note @1010 - patient updated on lab and imaging results which are acutely unremarkable. There is some evidence of mild dehydration. Part of the patient's symptoms are likely caused by his eating only one time per day and having episodic hypoglycemia as well as some dehydration. Advised the patient to try to eat any more balanced way around the day to try to prevent hypoglycemic episodes. Also advised the patient to drink more water. Workup today fails reveal any emergent pathology. Advised patient to follow up with his PCP in the next 2-3 days and to return to the emergency Department immediately for new or worsening symptoms. The patient's blood pressure at discharge is 130/81. No indication for starting the patient on blood pressure medication at this time. Advised returning to the emergency Department immediately for new or worsening symptoms. The patient expresses verbal understanding and agreement with the plan and is stable for discharge. ECG Comment @0850 - Normal sinus rhythm, rate of 78, normal axis, no acute ischemic fin dings noted, no STEMI, reviewed and interpreted by myself Departure Impression Primary Impression: Light-headed feeling Additional Impression: Tobacco abuse Disposition: 01 HOME, SELF-CARE Condition: Stable Departure-Patient Inst. Decision time for Depature: 10:16 Referrals: NO,LOCAL PHYSICIAN (PCP/Family) Primary Care Physician Patient Instructions: Dehydration, Adult (DC), Dizziness, Nonvertigo, (DC), HYPOGLYCEMIA, SMOKING CESSATION Add. Discharge Instructions: Follow-up with your doctor in the next 2-3 days. Drink plenty of water to stay well-hydrated. Try to eat multiple meals throughout the day to reduce the chances that her blood sugar goes to low. Return to the emergency Department immediately for new or worsening symptoms. Stop smoking cigarettes. ERIBERTO ZAZUETA DO Jun 08, 2020 09:19
--- NOTE | 2020-06-08 09:34 | NUR ---
Pt stated that he was dizzy when going from lying to sitting during orthostatic vital signs. No signficiant changes in vital signs when changing positions. Dr. Canseco was notified about vital signs.
[2020-06-08 09:37] LABS: CARBON DIOXIDE 23 MMOL/L (21-32); CHLORIDE 105 MMOL/L (98-107); POTASSIUM 4.5 MMOL/L (3.6-5.0); SODIUM 138 MMOL/L (135-145)
[2020-06-08 09:38] LABS: ALANINE AMINOTRANSFERASE 37 U/L (0-55); ALBUMIN 4.5 GM/DL (3.2-4.5); ALKALINE PHOSPHATASE 83 U/L (40-136); BILIRUBIN,TOTAL 0.2 MG/DL (0.1-1.0); BUN/CREATININE RATIO 23; CALCIUM 9.4 MG/DL (8.5-10.1); CREATININE SERUM 0.93 MG/DL (0.60-1.30); GFR ESTIMATED > 60; GLUCOSE 123 MG/DL (70-105); TOTAL PROTEIN 7.6 GM/DL (6.4-8.2)
[2020-06-08 10:23] VITALS: BP 125/87
== END 2020-06-08 10:23 | disposition home or self-care (01) ==
LOC: EDUNIT# 08:38 → ER FS 08:39
DX: R42 Dizziness and giddiness (principal); I10 Essential (primary) hypertension; F17.210 Nicotine dependence, cigarettes, uncomplicated; Z88.5 Allergy status to narcotic agent; Z88.1 Allergy status to other antibiotic agents
CPT/HCPCS: 36415; 71045; 80053; 82962; 83880; 84484; 85025; 93005

== ENCOUNTER 2020-08-01 07:22 | Emergency (ER) | payer SELFPAY ==
[~2020-08-01] VITALS: Ht 185.5 cm; Wt 114.0 kg
[2020-08-01] MEDS ORDERED: ONDANSETRON 4 MG (ZOFRAN) ORAL DISSOLVE TAB PO STA (07:40)
[2020-08-01] MEDS ORDERED: KETOROLAC 60 MG/2 ML VIAL IM ONE (07:45)
[2020-08-01 07:52] LABS: CLARITY,URINE CLEAR; COLOR,URINE YELLOW
[2020-08-01 07:53] LABS: BACTERIA,URINE NEGATIVE /HPF; BILIRUBIN,URINE NEGATIVE (NEGATIVE); GLUCOSE, URINE (UA) NEGATIVE (NEGATIVE); KETONES,URINE NEGATIVE (NEGATIVE); LEUKOCYTE ESTERASE ,URINE NEGATIVE (NEGATIVE); NITRITE,URINE NEGATIVE (NEGATIVE); PROTEIN,URINE NEGATIVE (NEGATIVE); RBC,URINE RARE /HPF; WBC,URINE 0-2 /HPF
--- NOTE | 2020-08-01 08:07 | Diagnostic Imaging Report ---
EXAMINATION: CT Abdomen Pelvis without contrast. TECHNIQUE: Multiple contiguous axial images were obtained through the abdomen and pelvis without the use of intravenous contrast. All CT scans use one or more of the following dose optimizing techniques: automated exposure control, MA and/or KvP adjustment based on a patient size and exam type, or iterative reconstruction. HISTORY: Flank pain COMPARISON: 05/26/2019 FINDINGS: Limited views of the lower thorax are unremarkable. The liver is normal without focal lesion. There is no biliary ductal dilation. Gallbladder is normal. Pancreas is normal. Spleen is normal. Adrenal glands are normal. There is one right-sided and three left-sided renal stones. The largest on the left measures 4 mm and is unchanged. The right-sided stone measures 2 mm and is similar to previous exam. There are no ureteral stones. There is no hydronephrosis. Urinary bladder is normal. There is a small fat-containing right inguinal hernia. Visualized bowel is normal in caliber without obstruction or inflammation. The appendix is normal. No free fluid or air. No abdominal or pelvic lymphadenopathy. Aorta is normal in caliber without aneurysm. There are no suspicious osseus lesions. IMPRESSION: 1. Bilateral nonobstructing renal stones, no ureteral calculi. Dictated by: Dictated on workstation # [id number]
--- NOTE | 2020-08-01 08:17 | ED General ---
General Chief Complaint: Back Problems Stated Complaint: LWR BACK PAIN; KERRY FLANK PAIN Nursing Triage Note: Patient reports right flank pain and lower back pain for several days, states he has had kidney stones in the past. Nursing Sepsis Screen: No Definite Risk Source of Information: Patient Exam Limitations: No Limitations History of Present Illness Date Seen by Provider: Aug 01, 2020 Time Seen by Provider: 07:30 Initial Comments Patient is 32-year-old male with history of kidney stones and mechanical back pain. He presents with right flank pain which is not radiating. Described as dull worse with palpation and movement. He denies urinary frequency urgency decreased urinary output or hematuria. No testicular pain, tenderness, swelling or masses. No nausea vomiting. No fever chills or sweats. Allergies and Home Medications Allergies Coded Allergies: codeine (Verified Allergy, Intermediate, 12/26/19) erythromycin base (Verified Allergy, Unknown, 12/26/19) Home Medications Amoxicillin/Potassium Clav 1 Each Tablet, 1 EACH PO BID Prescribed by: DONAVAN THOMAS on 12/26/192023 Cyclobenzaprine HCl 10 Mg Tablet, 10 MG PO Q8H PRN for SPASMS Prescribed by: CRUZ AGEE on 08/01/20 0843 Ondansetron 4 Mg Tab.rapdis, 4 MG PO Q6H Prescribed by: CRUZ AGEE on 05/24/19 1455 Oxycodone HCl/Acetaminophen 1 Each Tablet, 1 TAB PO Q8H PRN for PAIN-MODERATE Prescribed by: CRUZ AGEE on 05/24/19 1455 Tamsulosin HCl 0.4 Mg Cap, 0.4 MG PO DAILY Prescribed by: CRUZ AGEE on 05/24/19 1455 Patient Home Medication List Home Medication List Reviewed: Yes Review of Systems Review of Systems Constitutional: no symptoms reported EENTM: no symptoms reported Respiratory: no symptoms reported Cardiovascular: no symptoms reported Gastrointestinal: no symptoms reported Genitourinary: see HPI Musculoskeletal: see HPI Skin: see HPI Past Grvteve-Vhnwem-Yzuqhe Hx Past Med/Social Hx: Reviewed Nursing Past Med/Soc Hx Patient Social History Alcohol Use: Occasionally Uses Recreational Drug Use: No Smoking Status: Current Everyday Smoker Type Used: Cigarettes 2nd Hand Smoke Exposure: No Recent Foreign Travel: No Contact w/Someone Who Travel: No Recent Infectious Disease Expo: No Recent Hopitalizations: No Physical Abuse: No Sexual Abuse: No Mistreated: No Fear: No Seasonal Allergies Seasonal Allergies: No Past Medical History Surgeries: No Respiratory: Yes (chronic cough) Cardiac: Yes Hypertension Neurological: No Genitourinary: No Gastrointestinal: No Musculoskeletal: No Endocrine: Yes (hypoglycemia) HEENT: No Cancer: No Psychosocial: No Integumentary: No Blood Disorders: No Physical Exam Vital Signs Vital Signs - First Documented 08/01/20 07:27 Temp 36.4 Pulse 83 Resp 16 B/P (MAP) 129/88 (102) Pulse Ox 97 O2 Delivery Room Air Capillary Refill : Less Than 3 Seconds Height, Weight, BMI Height: '" Weight: lbs. oz. kg; 33.00 BMI Method: General Appearance: WD/WN, Mild Distress Eyes: Bilateral Eye Normal Inspection, Bilateral Eye PERRL, Bilateral Eye EOMI HEENT: PERRL/EOMI, Normal ENT Inspection, Pharynx Normal Neck: Non Tender, Supple Gastrointestinal: Non Tender, Soft Back: No CVA Tenderness, CVA Tenderness (R) Neurologic/Psychiatric: Alert, Oriented x3 Focused Exam Sepsis Stage: Ruled Out Progress/Results/Core Measures Suspected Sepsis Recent Fever Within 48 Hours: No Infection Criteria Present: None New/Unexplained Altered Menta: No Sepsis Screen: No Definite Risk SIRS Temperature: Pulse: 83 Respiratory Rate: 16 Blood Pressure 129 /88 Mean: 102 Results/Orders Lab Results Laboratory Tests Test 08/01/20 07:30 Range/Units Urine Color YELLOW Urine Clarity CLEAR Urine pH 6.0 5-9 Urine Specific [place] >=1.030 1.016-1.022 Urine Protein NEGATIVE NEGATIVE Urine Glucose (UA) NEGATIVE NEGATIVE Urine Ketones NEGATIVE NEGATIVE Urine Nitrite NEGATIVE NEGATIVE Urine Bilirubin NEGATIVE NEGATIVE Urine Urobilinogen 0.2 < = 1.0 MG/DL Urine Leukocyte Esterase NEGATIVE NEGATIVE Urine RBC (Auto) NEGATIVE NEGATIVE Urine RBC RARE /HPF Urine WBC 0-2 /HPF Urine Squamous Epithelial Cells NONE /HPF Urine Crystals NONE /LPF Urine Bacteria NEGATIVE /HPF Urine Casts NONE /LPF Urine Mucus SMALL H /LPF Urine Culture Indicated NO My Orders Orders - CRUZ AGEE DO Ketorolac Injection (Toradol Injection) (08/01/20 07:45) Ondansetron Oral Dissolve Tab (Zofran (08/01/20 07:40) Urinalysis (08/01/20 07:40) Ct Abd/Pelvis Wo(Kidney Stone) (08/01/20 07:40) Medications Given in ED Current Medications Medications Dose Ordered Sig/Glendy Route Start Time Stop Time Status Last Admin Dose Admin Ketorolac Tromethamine 60 mg ONCE ONCE IM 08/01/20 07:45 08/01/20 07:46 DC 08/01/20 07:52 60 MG Vital Signs/I&O 08/01/20 08/01/20 07:27 08:55 Temp 36.4 Pulse 83 72 Resp 16 16 B/P (MAP) 129/88 (102) 122/78 Pulse Ox 97 98 O2 Delivery Room Air Room Air Capillary Refill : Less Than 3 Seconds Blood Pressure Mean: 102 Departure Communication (Admissions) Mechanical back pain now evidence of kidney stone on CT. Impression Primary Impression: Right flank pain Disposition: HOME, SELF-CARE Condition: Stable Departure-Patient Inst. Decision time for Depature: 08:43 Referrals: NO,LOCAL PHYSICIAN (PCP/Family) Primary Care Physician Patient Instructions: Flank Pain (DC) Add. Discharge Instructions: Please go home and rest. Avoid strenuous physical activity and heavy lifting. Ibuprofen for pain and Flexeril as needed for additional relief. Please do not operate heavy machinery or perform any potential dangerous activity while taking medication. All discharge instructions reviewed with patient and/or family. Voiced understanding. Scripts Cyclobenzaprine HCl (Cyclobenzaprine HCl) 10 Mg Tablet 10 MG PO Q8H PRN for SPASMS, #15 TAB 0 Refills Prov: CRUZ AGEE DO 08/01/20 CRUZ AGEE DO Aug 01, 2020 08:17
[2020-08-01] MEDS ORDERED: CYCL10TA9 PO (08:43)
[2020-08-01 08:55] VITALS: BP 122/78
== END 2020-08-01 08:55 | disposition home or self-care (01) ==
LOC: EDUNIT# 07:22 → ER FS 07:24
DX: R10.9 Unspecified abdominal pain (principal); F17.210 Nicotine dependence, cigarettes, uncomplicated; Z88.5 Allergy status to narcotic agent; Z88.1 Allergy status to other antibiotic agents
CPT/HCPCS: 74176; 81000

== ENCOUNTER 2021-05-06 10:00 | Emergency (ER) | payer SELFPAY ==
[~2021-05-06] VITALS: Ht 185.5 cm; Wt 122.5 kg
[~2021-05-06 10:00] MED LIST changes: +CYCL10TA9 PO
--- OUTSIDE RECORDS SUMMARY | 2021-05-06 10:06 | XMS REPORT ---
Author Author [facility] Address Unknown Phone Unavailable Care Team Providers Care Resident Physician In Radiology Name Role Phone Migration, Doctor Unavailable Unavailable PROBLEMS Type Condition ICD9-CM Code [id number] Code Onset Dates Condition S tatus W/U Status Risk SNOMED Code Notes Problem Kidney stone N20.0 Active confirmed 0274439 7 Problem Low back pain with left-sided sciatica M54.42 A ctive confirmed [id number] ALLERGIES Allergen (clinical drug ingredient) Drug/Non Drug Allergy do cumented on EMR Reaction Allergy Type Onset Date Status Codeine itching Drug Allergy Active erythromycin Erythromycin Base([facility] Code:[address]-27) Unknown Pavan g Allergy Active aspirin Aspirin([facility] Code:[address]-94) Unknown Drug Allergy Active ENCOUNTERS from 1982 to 2021-04-25 Encounter Location Date Provider Diagnosis [facility] [address] [facility] [id number] [place] [address] Dec, Doctor Migration IMMUNIZATIONS Vaccine Route Administration Date Status ROCEPHIN 1 GM (IM) IM Intramuscular January 06, 2020 Administered SOCIAL HISTORY Sex Assigned At : Social History Observation Description Sex Assigned At Unknown Alcohol Screen (Audit-C) Question Answer Notes Did you have a drink containing alcohol in the past year? Ye s Points 2 Interpretation Negative How often did you have 6 or more drinks on one occasio n in the past year? Never (0 points) How many drinks did you have on a typica l day when you were drinking in the past year? 3 or 4 (1 point) How often did you have a drink containing alcohol in t he past year? Monthly or less (1 point) Cessation Question Answer Notes Date Tobacco Cessation Provided: 10/09/2020 PHQ2 Question Answer Notes In the last 2 weeks, how often have you had little interest or pleasure in doing things? Not at all In the last 2 weeks, how often have you been feeling down, depressed, or hopeless? Not at all Total PHQ2 Score 0 Tobacco use other than smoking: Question Answer Notes Are you an other tobacco user? Yes REASON FOR REFERRAL No Information VITAL SIGNS No information MEDICATIONS Medication SIG (Take, Route, Frequency, Duration) Notes Start Da te End Date Status Diclofenac Sodium 1 % 2 grams Transdermal Four times a day Jul, Active predniSONE 10 MG take 6 on day one then redu ce by one tab every day until gone (6,5,4,3,2,1) Orally Once a day for 6 days Sep, Active Tylenol 8 Hour 650 MG 2 tablets as needed Orally every 8 hrs Active Ibuprofen 200 MG 4 tablet with food or milk as needed Ora lly Three times a day Active Gabapentin 300 MG 1 capsule Orally 3 times a day for 14 days Aug, Active PROCEDURES No Information RESULTS No Results REASON FOR VISIT EMR[place] [place] MEDICAL (GENERAL) HISTORY Type Description Date Medical History kidney stones Medical History hypertension Medical History heat stroke Hospitalization History heat stroke Goals Section No Information Health Concerns No Information MEDICAL EQUIPMENT No Information MENTAL STATUS No Information FUNCTIONAL STATUS No Information ASSESSMENTS No Information PLAN OF TREATMENT Medication Medication Name Sig Start Date Stop Date predniSONE 10 MG take 6 on day one then redu ce by one tab every day until gone (6,5,4,3,2,1) Orally Once a day for 6 days Sep, Gabapentin 300 MG 1 capsule Orally 3 times a day for 14 days Aug, Insurance Providers Payer Name Payer Address Payer Phone Insured Name Patient Relati onship to Insured Coverage Start Date Coverage End Date RCM Missing insurance scan copy of card into pt doc Pr Srikanth guerra self [employer] [id number] [facility] [id number] Srikanth [place] self 2021
--- NOTE | 2021-05-06 10:28 | ED Cough/URI ---
General Chief Complaint: Respiratory Problems Stated Complaint: SOB; COVID+ Source: patient Exam Limitations: no limitations History of Present Illness Date Seen by Provider: May 06, 2021 Time Seen by Provider: 10:27 Initial Comments 40-year-old male presents 4 days into an illness including a cough, nasal congestion progressing somewhat now having some shortness of air since last night. Diagnosed with Covid today at outside clinic. Admits that he has some c hest pressure that is been there for several days, beginning before he felt ill. Has any heart or lung history, however he is a tobacco smoker and uses chewing tobacco as well. Allergies and Home Medications Allergies Coded Allergies: codeine (Verified Allergy, Intermediate, 12/26/19) erythromycin base (Verified Allergy, Unknown, 12/26/19) Home Medications Albuterol Sulfate 1 Puff Puff, 2 PUFF IH Q4H 1 PUFF = 90 MCG Prescribed by: KEELEY REBOLLEDO on 05/06/21 1130 Amoxicillin/Potassium Clav 1 Each Tablet, 1 EACH PO BID Prescribed by: DONAVAN THOMAS on 12/26/192023 Azithromycin 500 Mg Tablet, 500 MG PO DAILY Prescribed by: KEELEY REBOLLEDO on 05/06/21 1129 Cyclobenzaprine HCl 10 Mg Tablet, 10 MG PO Q8H PRN for SPASMS Prescribed by: CRUZ AGEE on 08/01/20 0843 Ondansetron 4 Mg Tab.rapdis, 4 MG PO Q6H Prescribed by: CRUZ AGEE on 05/24/19 1455 Oxycodone HCl/Acetaminophen 1 Each Tablet, 1 TAB PO Q8H PRN for PAIN-MODERATE Prescribed by: CRUZ AGEE on 05/24/19 1455 Tamsulosin HCl 0.4 Mg Cap, 0.4 MG PO DAILY Prescribed by: CRUZ AGEE on 05/24/19 1455 Patient Home Medication List Home Medication List Reviewed: Yes Review of Systems Review of Systems Constitutional: fever, malaise; No weakness EENTM: see HPI, nose congestion; No ear pain, No throat pain, No throat swelling Respiratory: cough, short of breath; No stridor, No wheezing Cardiovascular: chest pain ("Pressure"); No edema, No palpitations, No syncope; other (Patient states his heart rate is always over 100) Gastrointestinal: No abdominal pain, No loss of appetite, No nausea, No vomiting Musculoskeletal: No back pain, No joint pain Skin: No change in color, No rash Psychiatric/Neurological: Denies Headache, Denies Numbness, Denies Paresthesia Past Koowxst-Jsdwat-Antdcr Hx Patient Social History Tobacco Use?: Yes Smokeless Tobacco Frequency: Current Everyday User Seasonal Allergies Seasonal Allergies: No Past Medical History Surgeries: No Respiratory: Yes (chronic cough) Cardiac: Yes Hypertension Neurological: No Genitourinary: No Gastrointestinal: No Musculoskeletal: No Endocrine: Yes (hypoglycemia) HEENT: No Cancer: No Psychosocial: No Integumentary: No Blood Disorders: No Physical Exam Vital Signs - First Documented 05/06/21 10:23 Temp 38.1 Pulse 134 Resp 20 B/P (MAP) 157/94 (115) Pulse Ox 95 O2 Delivery Room Air Capillary Refill : Height: '" Weight: lbs. oz. kg; 33.00 BMI Method: General Appearance: WD/WN, no apparent distress Eyes: Bilateral Eye Normal Inspection, Bilateral Eye PERRL, Bilateral Eye EOMI HEENT: PERRL/EOMI, normal ENT inspection Neck: non-tender, full range of motion Respiratory: chest non-tender, lungs clear, normal breath sounds, no respiratory distress Cardiovascular: no edema, no JVD, tachycardia Gastrointestinal: non tender, soft Extremities: non-tender, no pedal edema Neurologic/Psychiatric: no motor/sensory deficits, alert, normal mood/affect Skin: normal color, warm/dry Focused Exam Lactate Level 05/06/21 10:48: Lactic Acid Level 1.59 Lactic Acid Level Laboratory Tests Test 05/06/21 10:48 Lactic Acid Level 1.59 MMOL/L (0.50-2.00) Progress/Results/Core Measures Suspected Sepsis SIRS Temperature: Pulse: Respiratory Rate: Laboratory Tests 05/06/21 10:48: White Blood Count 5.6 Blood Pressure / Mean: 05/06/21 10:48: Lactic Acid Level 1.59 Laboratory Tests 05/06/21 10:48: Creatinine 0.95, Platelet Count 229, Total Bilirubin < 0.2 Results/Orders Lab Results Laboratory Tests Test 05/06/21 10:48 Range/Units White Blood Count 5.6 4.3-11.0 10^3/uL Red Blood Count 5.34 4.30-5.52 10^6/uL Hemoglobin 16.3 13.3-17.7 g/dL Hematocrit 48 40-54 % Mean Corpuscular Volume 89 80-99 fL Mean Corpuscular Hemoglobin 31 25-34 pg Mean Corpuscular Hemoglobin Concent 34 32-36 g/dL Red Cell Distribution Width 13.5 10.0-14.5 % Platelet Count 229 130-400 10^3/uL Mean Platelet Volume 10.8 9.0-12.2 fL Immature Granulocyte % (Auto) 1 % Neutrophils (%) (Auto) 57 42-75 % Lymphocytes (%) (Auto) 20 12-44 % Monocytes (%) (Auto) 18 H 0-12 % Eosinophils (%) (Auto) 3 0-10 % Basophils (%) (Auto) 1 0-10 % Neutrophils # (Auto) 3.2 1.8-7.8 X 10^3 Lymphocytes # (Auto) 1.2 1.0-4.0 X 10^3 Monocytes # (Auto) 1.0 0.0-1.0 X 10^3 Eosinophils # (Auto) 0.2 0.0-0.3 10^3/uL Basophils # (Auto) 0.1 0.0-0.1 10^3/uL Immature Granulocyte # (Auto) 0.0 0.0-0.1 10^3/uL Neutrophils % (Manual) 56 % Lymphocytes % (Manual) 22 % Monocytes % (Manual) 17 % Eosinophils % (Manual) 4 % Basophils % (Manual) 1 % D-Dimer 0.31 0.00-0.49 UG/ML Sodium Level 137 135-145 MMOL/L Potassium Level 4.7 3.6-5.0 MMOL/L Chloride Level 102 98-107 MMOL/L Carbon Dioxide Level 22 21-32 MMOL/L Anion Gap 13 5-14 MMOL/L Blood Urea Nitrogen 13 7-18 MG/DL Creatinine 0.95 0.60-1.30 MG/DL Estimat Glomerular Filtration Rate 89 BUN/Creatinine Ratio 14 Glucose Level 109 H 70-105 MG/DL Lactic Acid Level 1.59 0.50-2.00 MMOL/L Calcium Level 9.5 8.5-10.1 MG/DL Corrected Calcium 9.2 8.5-10.1 MG/DL Total Bilirubin < 0.2 0.1-1.0 MG/DL Aspartate Amino Transf (AST/SGOT) 27 5-34 U/L Alanine Aminotransferase (ALT/SGPT) 37 0-55 U/L Alkaline Phosphatase 102 40-136 U/L Troponin I < 0.30 <0.30 NG/ML C-Reactive Protein 0.64 H <0.50 MG/DL Total Protein 7.6 6.4-8.2 GM/DL Albumin 4.4 3.2-4.5 GM/DL My Orders Orders - АННАVENSTKEELEY RINCON DO Ed Iv/Invasive Line Start (05/06/21 10:37) Chest 1 View Ap/Pa Only (05/06/21 10:37) Ekg Tracing (05/06/21 10:37) Troponin I Fs (05/06/21 10:37) Urinalysis (05/06/21 10:37) Fibrin Degradation Products (05/06/21 10:37) Cbc With Automated Diff (05/06/21 10:37) Comprehensive Metabolic Panel (05/06/21 10:37) Crp Fs (05/06/21 10:37) Lactic Acid Analyzer (05/06/21 10:37) Aspirin Chewable Tablet (Baby Aspirin Ch (05/06/21 10:45) Ns Iv 1000 Ml (Sodium Chloride 0.9%) (05/06/21 10:45) Manual Differential (05/06/21 10:48) Medications Given in ED Current Medications Medications Dose Ordered Sig/Glendy Route Start Time Stop Time Status Last Admin Dose Admin Aspirin 324 mg ONCE ONCE PO 05/06/21 10:45 05/06/21 10:46 DC 05/06/21 10:52 324 MG Vital Signs/I&O 05/06/21 05/06/21 10:23 11:51 Temp 38.1 Pulse 134 110 Resp 20 18 B/P (MAP) 157/94 (115) 164/95 Pulse Ox 95 97 O2 Delivery Room Air Room Air Capillary Refill : Progress Note : Progress Note HR improved and pt feeling better after fluids. Long discussion about lifestyle choices, smoking and caffeine intake without drinking water. Pt agrees and understands. Discussed vitamins to assist w viral illness and as prevention for future illness or severity. CXR with small opacity, questionable infectious etio, (does not appear typical for Luis) will Tx w rocaelithro and advised f/u for repeat CXR to follow resolution. Advised to Return to ER for any progressive SOA or hypoxia ECG Initial ECG Impression Date: May 06, 2021 Initial ECG Impression Time: 10:50 Initial ECG Rate: 120 Initial ECG Rhythm: S.Tach Initial ECG Intervals: Normal Initial ECG Impression: Normal Initial ECG Comparisson: No Previous ECG Available Diagnostic Imaging Diagonstic Imaging: Xray Plain Films/CT/US/NM/MRI: chest Comments COMPARISON: Chest radiograph 06/08/2020. FINDINGS: Normal heart size and central pulmonary vascularity. Mild airspace opacity in the medial right lung base. Lungs are otherwise clear. No pleural effusion or pneumothorax. No acute osseous findings. IMPRESSION: Subtle airspace opacity in the medial right lung base. Lungs are otherwise clear. Dictated on workstation # [id number] Dict: 05/06/21 1100 Trans: 05/06/21 1102 [id number] [id number] Interpreted by: STACIA JACOBO MD Electronically signed by: Departure Impression Primary Impression: COVID-19 Additional Impression: Opacity of lung on imaging study Disposition: HOME, SELF-CARE Condition: Stable Departure-Patient Inst. Decision time for Depature: 11:30 Referrals: [facility] [place]IC[place] (PCP) Primary Care Physician Patient Instructions: COVID-19 ED, Pneumonia, Adult (DC) Add. Discharge Instructions: establish care at the local [facility] for a follow up appointment in 1 week......and for repeat Chest X-ray to look for resolution of your abnormal lung findings. Take the antibiotic as prescribed (DOXYCYCLINE) Take the following for the next 4 weeks: 1. Vitamin D3 4,000iu daily 2. Zinc 100mg daily 3. Vitamin C 1,000mg twice daily 4. Melatonin 10mg at bedtime Aspirin 325mg daily for 2 weeks All discharge instructions reviewed with patient and/or family. Voiced understanding. Scripts Albuterol Sulfate (PROAIR HFA) 1 Puff Puff 2 PUFF IH Q4H for Cough, #1 PUFF 1 Refill 1 PUFF = 90 MCG Prov: KEELEY REBOLLEDO DO 05/06/21 Azithromycin (Azithromycin) 500 Mg Tablet 500 MG PO DAILY, #5 TAB Prov: KEELEY REBOLLEDO DO 05/06/21 KEELEY REBOLLEDO DO May 06, 2021 10:28
[2021-05-06] MEDS ORDERED: ASPIRIN 81 MG CHEW (CHILDREN'S ASA) PO ONE (10:45)
[2021-05-06] MEDS ORDERED: NS IV 1000 ML 1,000 ML IV SCH (10:45)
[2021-05-06 10:54] LABS: BASOPHILS # (AUTO) 0.1 10^3/uL (0.0-0.1); BASOPHILS % (AUTO) 1 % (0-10); EOSINOPHILS # (AUTO) 0.2 10^3/uL (0.0-0.3); EOSINOPHILS % (AUTO) 3 % (0-10); HEMATOCRIT 48 % (40-54); HEMOGLOBIN 16.3 g/dL (13.3-17.7); LYMPHOCYTES # (AUTO) 1.2 X 10^3 (1.0-4.0); LYMPHOCYTES % (AUTO) 20 % (12-44); MEAN CORPUSCULAR HEMOGLOBIN 31 pg (25-34); MEAN CORPUSCULAR HGB CONC 34 g/dL (32-36); MEAN CORPUSCULAR VOLUME 89 fL (80-99); MEAN PLATELET VOLUME 10.8 fL (9.0-12.2); MONOCYTES % (AUTO) 18 % (0-12); NEUTROPHILS # (AUTO) 3.2 X 10^3 (1.8-7.8); NEUTROPHILS % (AUTO) 57 % (42-75); PLATELET COUNT 229 10^3/uL (130-400); WHITE BLOOD COUNT 5.6 10^3/uL (4.3-11.0)
--- NOTE | 2021-05-06 11:02 | Diagnostic Imaging Report ---
EXAM: CHEST 1 VIEW AP/PA ONLY INDICATION: Shortness fair. COVID. COMPARISON: Chest radiograph 06/08/2020. FINDINGS: Normal heart size and central pulmonary vascularity. Mild airspace opacity in the medial right lung base. Lungs are otherwise clear. No pleural effusion or pneumothorax. No acute osseous findings. IMPRESSION: Subtle airspace opacity in the medial right lung base. Lungs are otherwise clear. Dictated by: Dictated on workstation # [id number]
[2021-05-06 11:09] LABS: ALANINE AMINOTRANSFERASE 37 U/L (0-55); ALBUMIN 4.4 GM/DL (3.2-4.5); ALKALINE PHOSPHATASE 102 U/L (40-136); BILIRUBIN,TOTAL < 0.2 MG/DL (0.1-1.0); BUN/CREATININE RATIO 14; CALCIUM 9.5 MG/DL (8.5-10.1); CARBON DIOXIDE 22 MMOL/L (21-32); CHLORIDE 102 MMOL/L (98-107); CREATININE SERUM 0.95 MG/DL (0.60-1.30); GFR ESTIMATED 89; GLUCOSE 109 MG/DL (70-105); POTASSIUM 4.7 MMOL/L (3.6-5.0); SODIUM 137 MMOL/L (135-145); TOTAL PROTEIN 7.6 GM/DL (6.4-8.2)
[2021-05-06 11:14] LABS: BASOPHILS % (MANUAL) 1 %; EOSINOPHILS % (MANUAL) 4 %; LYMPHOCYTES % (MANUAL) 22 %; MONOCYTES % (MANUAL) 17 %; NEUTROPHILS % (MANUAL) 56 %
[2021-05-06] MEDS ORDERED: AZIT500T9 PO (11:29)
[2021-05-06] MEDS ORDERED: RT-ALBUINH IH (11:30)
[2021-05-06 11:51] VITALS: BP 164/95
== END 2021-05-06 12:00 | disposition home or self-care (01) ==
LOC: EDUNIT# 10:00 → ER FS 10:03
DX: U07.1 COVID-19 (principal); I10 Essential (primary) hypertension; F17.290 Nicotine dependence, other tobacco product, uncomplicated
CPT/HCPCS: 36415; 71045; 80053; 83605; 84484; 85007; 85027; 85379; 86141; 93005

== ENCOUNTER 2021-05-12 05:28 | Emergency (ER) | payer SELFPAY ==
[~2021-05-12] VITALS: Ht 185.4 cm; Wt 122.4 kg
[~2021-05-12 05:28] MED LIST changes: +AZIT500T9 PO; +RT-ALBUINH IH
[2021-05-12 05:55] LABS: WHITE BLOOD COUNT 5.4 10^3/uL (4.3-11.0)
[2021-05-12 05:56] LABS: BASOPHILS % (AUTO) 1 % (0-10); EOSINOPHILS % (AUTO) 0 % (0-10); HEMATOCRIT 48 % (40-54); HEMOGLOBIN 16.4 g/dL (13.3-17.7); LYMPHOCYTES # (AUTO) 2.1 X 10^3 (1.0-4.0); LYMPHOCYTES % (AUTO) 38 % (12-44); MEAN CORPUSCULAR HEMOGLOBIN 30 pg (25-34); MEAN CORPUSCULAR HGB CONC 34 g/dL (32-36); MEAN CORPUSCULAR VOLUME 90 fL (80-99); MONOCYTES # (AUTO) 0.5 X 10^3 (0.0-1.0); MONOCYTES % (AUTO) 9 % (0-12); NEUTROPHILS # (AUTO) 2.8 X 10^3 (1.8-7.8); NEUTROPHILS % (AUTO) 52 % (42-75); PLATELET COUNT 147 10^3/uL (130-400)
[2021-05-12] MEDS ORDERED: NS IV 1000 ML 1,000 ML IV SCH (06:00)
--- NOTE | 2021-05-12 06:06 | ED General ---
General Chief Complaint: Respiratory Problems Stated Complaint: FEVER Nursing Triage Note: Patient is brought in by his sister for shortness of breath. Patient states he was seen May 06 for the same symptoms. Patient was given antibiotics and told that he had pneumonia. At that time, patient tested positive for Covid on a test from his sisters work. Patient is worried that the pneumonia has gotten worse. Patient states that he took all of his antibiotics but doesn't feel like he has gotten any better. Patient is coughing and states he is having fevers at home. Source of Information: Patient, Old Records (ADENIKE MORENO MD) History of Present Illness Date Seen by Provider: May 12, 2021 Time Seen by Provider: 05:29 Initial Comments 40 yo male presenting by private vehicle with complaints of continued feeling sick since seen on FridayMay 06. He was told he had pneumonia at that visit and took a Z pack that he finished on . He has nausea and feels like he is going to throw up when he moves around. He also feels like he might have diarrhea when he gets up and moves. He denies any actual vomiting or diarrhea. He has had subjective fever and chills. He has not taken his temperature recently. He continues to feel like he is still sick and not improving. He feels dizzy and lightheaded when he stands up. He reports that he feels like he has been drinking enough water but still feels dizzy and lightheaded with changing positions. He reports that at his prior visit to the ED he was told to return if he was not improving. He states he is concerned that the pneumonia has not cleared and since he has no primary care provider and has not tried again with anyone he came here to the emergency department. When asked if he had tried to call the [facility] clinic or get in with a provider he replied no and said "apparently I was supposed to be on quarantine, but nobody told me that". He denies swelling or pain in his calves or legs. Associated Systoms: Cough, Fever/Chills (subjective), Malaise, Shortness of Air (ADENIKE MORENO MD) Allergies and Home Medications Allergies Coded Allergies: codeine (Verified Allergy, Intermediate, 12/26/19) erythromycin base (Verified Allergy, Unknown, 12/26/19) Home Medications Albuterol Sulfate 1 Puff Puff, 2 PUFF IH Q4H 1 PUFF = 90 MCG Prescribed by: KEELEY REBOLLEDO on 05/06/21 1130 Amoxicillin/Potassium Clav 1 Each Tablet, 1 EACH PO BID Prescribed by: DONAVAN THOMAS on 12/26/192023 Azithromycin 500 Mg Tablet, 500 MG PO DAILY Prescribed by: KEELEY REBOLLEDO on 05/06/21 1129 Cyclobenzaprine HCl 10 Mg Tablet, 10 MG PO Q8H PRN for SPASMS Prescribed by: CRUZ AGEE on 08/01/20 0843 Ondansetron 4 Mg Tab.rapdis, 4 MG PO Q6H Prescribed by: CRUZ AGEE on 05/24/19 145 Oxycodone HCl/Acetaminophen 1 Each Tablet, 1 TAB PO Q8H PRN for PAIN-MODERATE Prescribed by: CRUZ AGEE on 05/24/19 145 Tamsulosin HCl 0.4 Mg Cap, 0.4 MG PO DAILY Prescribed by: CRUZ AGEE on 05/24/19 145 Patient Home Medication List Home Medication List Reviewed: Yes (ADENIKE MORENO MD) Review of Systems Review of Systems Constitutional: see HPI EENTM: no symptoms reported Respiratory: see HPI, cough, short of breath Cardiovascular: No edema; palpitations Gastrointestinal: see HPI, nausea; No vomiting Genitourinary: no symptoms reported Musculoskeletal: other (generalized muscle and body aches) Skin: No rash Psychiatric/Neurological: Headache (ADENIKE MORENO MD) Past Zauotiz-Hdjewd-Qdhfpo Hx Patient Social History Tobacco Use?: Yes Smoking Status: Current Everyday Smoker (usually a 1 ppd smoker but less since been sick) (ADENIKE MORENO MD) Seasonal Allergies Seasonal Allergies: No (ADENIKE MORENO MD) Past Medical History Surgery/Hospitalization HX: Hx of HTN Surgeries: No Respiratory: Yes (chronic cough) Cardiac: Yes Hypertension Neurological: No Genitourinary: No Gastrointestinal: No Musculoskeletal: No Endocrine: Yes (hypoglycemia) HEENT: No Cancer: No Psychosocial: No Integumentary: No Blood Disorders: No (ADENIKE MORENO MD) Physical Exam Vital Signs Vital Signs - First Documented 05/12/21 05:38 Temp 37.1 Pulse 118 Resp 16 B/P (MAP) 136/93 (107) Pulse Ox 95 O2 Delivery Room Air (JOSÉ ANTONIO MATUTE DO) Vital Signs Capillary Refill : Less Than 3 Seconds (ADENIKE MORENO MD) Height, Weight, BMI Height: '" Weight: lbs. oz. kg; 35.00 BMI Method: General Appearance: No Apparent Distress, Obese HEENT: PERRL/EOMI, Pharynx Normal Neck: Full Range of Motion, Normal Inspection, Non Tender, Supple Respiratory: Lungs Clear, Normal Breath Sounds, No Accessory Muscle Use, No Respiratory Distress Cardiovascular: No Murmur, Normal Peripheral Pulses, Tachycardia Gastrointestinal: Normal Bowel Sounds, No Pulsatile Mass, Non Tender, Soft Rectal: Deferred Extremity: Normal Capillary Refill, Normal Inspection, No Calf Tenderness, No Pedal Edema Neurologic/Psychiatric: Alert, Oriented x3, No Motor/Sensory Deficits, parachute/combatant diver officer II- XII Norm as Tested Skin: Normal Color, Warm/Dry (ADENIKE MORENO MD) Focused Exam Lactate Level 05/12/21 05:44: Lactic Acid Level 0.79 (JOSÉ ANTONIO MATUTE DO) Lactic Acid Level Laboratory Tests Test 05/12/21 05:44 Lactic Acid Level 0.79 MMOL/L (0.50-2.00) (JOSÉ ANTONIO MATUTE DO) Progress/Results/Core Measures Suspected Sepsis SIRS Temperature: Pulse: 118 Respiratory Rate: 16 Laboratory Tests 05/12/21 05:44: White Blood Count 5.4 Blood Pressure 136 /93 Mean: 107 05/12/21 05:44: Lactic Acid Level 0.79 Laboratory Tests 05/12/21 05:44: Creatinine 0.89, INR Comment 0.9, Platelet Count 147, Total Bilirubin 0.4 (ADENIKE MORENO MD) Results/Orders Lab Results Laboratory Tests Test 05/12/21 05:44 05/12/21 06:31 Range/Units White Blood Count 5.4 4.3-11.0 10^3/uL Red Blood Count 5.39 4.30-5.52 10^6/uL Hemoglobin 16.4 13.3-17.7 g/dL Hematocrit 48 40-54 % Mean Corpuscular Volume 90 80-99 fL Mean Corpuscular Hemoglobin 30 25-34 pg Mean Corpuscular Hemoglobin Concent 34 32-36 g/dL Red Cell Distribution Width 13.4 10.0-14.5 % Platelet Count 147 130-400 10^3/uL Mean Platelet Volume 11.0 9.0-12.2 fL Immature Granulocyte % (Auto) 0 % Neutrophils (%) (Auto) 52 42-75 % Lymphocytes (%) (Auto) 38 12-44 % Monocytes (%) (Auto) 9 0-12 % Eosinophils (%) (Auto) 0 0-10 % Basophils (%) (Auto) 1 0-10 % Neutrophils # (Auto) 2.8 1.8-7.8 X 10^3 Lymphocytes # (Auto) 2.1 1.0-4.0 X 10^3 Monocytes # (Auto) 0.5 0.0-1.0 X 10^3 Eosinophils # (Auto) 0.0 0.0-0.3 10^3/uL Basophils # (Auto) 0.0 0.0-0.1 10^3/uL Immature Granulocyte # (Auto) 0.0 0.0-0.1 10^3/uL Prothrombin Time 12.7 12.2-14.7 SEC INR Comment 0.9 0.8-1.4 Activated Partial Thromboplast Time 36 H 24-35 SEC D-Dimer 0.51 H 0.00-0.49 UG/ML Sodium Level 134 L 135-145 MMOL/L Potassium Level 4.3 3.6-5.0 MMOL/L Chloride Level 103 98-107 MMOL/L Carbon Dioxide Level 22 21-32 MMOL/L Anion Gap 9 5-14 MMOL/L Blood Urea Nitrogen 15 7-18 MG/DL Creatinine 0.89 0.60-1.30 MG/DL Estimat Glomerular Filtration Rate 96 BUN/Creatinine Ratio 17 Glucose Level 115 H 70-105 MG/DL Lactic Acid Level 0.79 0.50-2.00 MMOL/L Calcium Level 8.8 8.5-10.1 MG/DL Corrected Calcium 8.7 8.5-10.1 MG/DL Total Bilirubin 0.4 0.1-1.0 MG/DL Aspartate Amino Transf (AST/SGOT) 137 H 5-34 U/L Alanine Aminotransferase (ALT/SGPT) 195 H 0-55 U/L Alkaline Phosphatase 87 40-136 U/L Troponin I < 0.30 <0.30 NG/ML C-Reactive Protein 0.38 <0.50 MG/DL Pro-B-Type Natriuretic Peptide 7.4 <75.0 PG/ML Total Protein 7.4 6.4-8.2 GM/DL Albumin 4.1 3.2-4.5 GM/DL Urine Color DARK YELLOW Urine Clarity CLEAR Urine pH 6.0 5-9 Urine Specific [place] 1.025 H 1.016-1.022 Urine Protein TRACE H NEGATIVE Urine Glucose (UA) NEGATIVE NEGATIVE Urine Ketones TRACE H NEGATIVE Urine Nitrite NEGATIVE NEGATIVE Urine Bilirubin 1+ H NEGATIVE Urine Urobilinogen 0.2 < = 1.0 MG/DL Urine Leukocyte Esterase NEGATIVE NEGATIVE Urine RBC (Auto) NEGATIVE NEGATIVE Urine RBC 5-10 H /HPF Urine WBC 0-2 /HPF Urine Squamous Epithelial Cells NONE /HPF Urine Crystals NONE /LPF Urine Bacteria TRACE /HPF Urine Casts NONE /LPF Urine Mucus LARGE H /LPF Urine Culture Indicated NO (MATUTE,JOSÉ ANTONIO L DO) Medications Given in ED (MATUTE,JOSÉ ANTONIO L DO) Vital Signs/I&O 05/12/21 05/12/21 05:38 08:45 Temp 37.1 36.9 Pulse 118 98 Resp 16 15 B/P (MAP) 136/93 (107) 141/90 (107) Pulse Ox 95 95 O2 Delivery Room Air Room Air (MATUTE,JOSÉ ANTONIO L DO) Vital Signs/I&O Capillary Refill : Less Than 3 Seconds (ADENIKE MORENO MD) Blood Pressure Mean: 107 Progress Note #1: Progress Note Repeat labs, CXR, Blood culture and lactic acid from Friday. Order Covid and flu. ECG for tachycardia. IVF for hydration with tachycardia. Pt refused swab stating he already had it done and so he did not want it repeated Progress Note #2: Progress Note Electrocardiogram shows tachycardia consistent dehydration. This looks similar to prior tracing. Chest x-ray appears similar to prior film. Unable to obtain blood gas despite several attempts so will defer further sticks for that. His labs were showing stable CBC without acute elevation white count. His chemistry was stable without signs of sepsis. He did have mild elevation of his AST and ALT. His cardiac enzymes were negative. He did have mild elevation of his D- dimer to 0.51. This is elevated from Friday, May [address] scan. His urinalysis revealed dehydration with elevated specific gravity and ketones. Will order second liter of fluids. Counseled patient on results. Updated Dr. Dejan cruz of plan and pending tests. Awaiting CT angiogram (ADENIKE MORENO MD) Progress Note : Progress Note Patient's O2 saturations remained in the mid 90s. Patient does have minor infiltrate on CT. Discussed with patient that at this point likely due to Covid and is supportive care. Should monitor his oxygen, follow-up with her primary care provider as needed. Recommends weight loss and smoking sensation. Patient stable and discharged home (JOSÉ ANTONIO MATUTE DO) ECG Initial ECG Impression Date: May 12, 2021 Initial ECG Impression Time: 05:52 Initial ECG Rate: 108 Initial ECG Rhythm: S.Tach Initial ECG Comparisson: Unchanged Comment Sinus tachycardia with a heart rate of 108 bpm. MN interval 131 ms. QT interval 333 ms with a QTc interval 447 ms. He has no acute ST elevation. This appears similar to tracing from EMR (ADENIKE MORENO MD) Diagnostic Imaging Diagonstic Imaging: Xray Plain Films/CT/US/NM/MRI: chest Comments NAME: UVALDO COLLINS [facility] REC#: [id number] PT STATUS: REG ER : 1980 PHYSICIAN: ADENIKE MORENO MD ADMIT DATE: 05/12/21/ER FS Draft Date of Exam:05/12/21 CHEST 1 VIEW AP/PA ONLY HISTORY: Covid, cough, shortness of air, tachycardia COMPARISON: 05/06/2021 TECHNIQUE: Frontal view of the chest FINDINGS: There is mildly increased airspace opacity in the left lung base and the medial right lung base. No pleural effusion or pneumothorax is seen. The cardiac silhouette is normal in size. IMPRESSION: 1. Mild airspace opacities in the lung bases, may represent infection. Dictated on workstation # [id number] Dict: 05/12/21 0650 Trans: 05/12/21 0702 [id number] Interpreted by: TUSHAR DAVIDSON MD Electronically signed by: Diagonstic Imaging: CT Plain Films/CT/US/NM/MRI: chest (ADENIKE MORENO MD) Comments Date of Exam:05/12/21 CT ANGIO CHEST W PROCEDURE: CT angiography of the chest with contrast. TECHNIQUE: Multiple contiguous axial images were obtained through the chest after uneventful bolus administration of intravenous contrast. 3D reconstructed CTA MIP acquisitions were also performed. Auto Exposure Controls were utilized during the CT exam to meet ALARA standards for radiation dose reduction. INDICATION: Shortness of breath, tachycardia, elevated d-dimer COMPARISON: Chest x-ray from the same day FINDINGS: The pulmonary arteries are diagnostic to the segmental level. No filling defects are seen to indicate a pulmonary embolus. The aorta is normal in caliber. The heart is normal in size. There is no pericardial effusion. There are prominent mediastinal and right hilar lymph nodes. A marker node measuring 1.4 cm in short axis is seen on image 68, series 5). There is no pleural effusion or pneumothorax. There are multifocal groundglass and airspace opacities, predominantly in the lung bases. There is no pleural effusion or pneumothorax. No acute osseous abnormality is seen. Imaged portions of the upper abdomen demonstrate no acute abnormality. There is a small enhancing focus in the medial right liver measuring about a centimeter in size which may represent a flash filling hemangioma, appear stable since 2019. IMPRESSION: 1. No pulmonary embolus. 2. Multifocal groundglass and airspace opacities, mostly in the lung bases, consistent with infection. 3. Mildly prominent mediastinal and right hilar lymph nodes, most likely reactive. Reviewed: Reviewed/Discussed (JOSÉ ANTONIO MATUTE DO) Transfer of Care Transfer of Care Time: 07:00 Care transferred to: Dr. Matute (ADENIKE MORENO MD) Departure Impression Primary Impression: COVID-19 Additional Impression: Opacity of lung on imaging study Disposition: 01 HOME, SELF-CARE Condition: Stable Departure-Patient Inst. Referrals: NO,LOCAL PHYSICIAN (PCP/Family) Primary Care Physician Patient Instructions: COVID-19 ED Add. Discharge Instructions: Monitor your oxygen with a home oxygen monitor. If gets below 90 to 91% please follow-up with your primary care provider return to the ER for reevaluation. Continue vitamins and supportive care, drink plenty of fluids All discharge instructions reviewed with patient and/or family. Voiced understanding. ADENIKE MORENO MD May 12, 2021 06:06 JOSÉ ANTONIO MATUTE DO May 12, 2021 08:17
[2021-05-12 06:27] LABS: INR 0.9 (0.8-1.4); PROTHROMBIN TIME PATIENT 12.7 SEC (12.2-14.7)
[2021-05-12 06:28] LABS: ALANINE AMINOTRANSFERASE 195 U/L (0-55); ALBUMIN 4.1 GM/DL (3.2-4.5); ALKALINE PHOSPHATASE 87 U/L (40-136); BILIRUBIN,TOTAL 0.4 MG/DL (0.1-1.0); BUN/CREATININE RATIO 17; CALCIUM 8.8 MG/DL (8.5-10.1); CARBON DIOXIDE 22 MMOL/L (21-32); CHLORIDE 103 MMOL/L (98-107); CREATININE SERUM 0.89 MG/DL (0.60-1.30); GFR ESTIMATED 96; GLUCOSE 115 MG/DL (70-105); POTASSIUM 4.3 MMOL/L (3.6-5.0); SODIUM 134 MMOL/L (135-145); TOTAL PROTEIN 7.4 GM/DL (6.4-8.2)
[2021-05-12 06:41] LABS: BACTERIA,URINE TRACE /HPF; BILIRUBIN,URINE 1+ (NEGATIVE); CLARITY,URINE CLEAR; COLOR,URINE DARK YELLOW; GLUCOSE, URINE (UA) NEGATIVE (NEGATIVE); KETONES,URINE TRACE (NEGATIVE); LEUKOCYTE ESTERASE ,URINE NEGATIVE (NEGATIVE); NITRITE,URINE NEGATIVE (NEGATIVE); PROTEIN,URINE TRACE (NEGATIVE); WBC,URINE 0-2 /HPF
[2021-05-12] MEDS ORDERED: NS IV 1000 ML 1,000 ML IV STA (06:42)
[2021-05-12] MEDS ORDERED: HOLD METFORMIN - RECEIVED CONTRAST 20 ML VIAL IV SCH (06:45)
[2021-05-12] MEDS ORDERED: NS 100 ML (IVPB) BAG IV ONE (06:45)
[2021-05-12] MEDS ORDERED: IOHEXOL 350 MG/ML 150 ML (OMNIPAQUE 350) VIAL IV ONE (06:45)
--- NOTE | 2021-05-12 07:03 | Diagnostic Imaging Report ---
HISTORY: Covid, cough, shortness of air, tachycardia COMPARISON: 05/06/2021 TECHNIQUE: Frontal view of the chest FINDINGS: There is mildly increased airspace opacity in the left lung base and the medial right lung base. No pleural effusion or pneumothorax is seen. The cardiac silhouette is normal in size. IMPRESSION: 1. Mild airspace opacities in the lung bases, may represent infection. Dictated by: Dictated on workstation # [id number]
--- NOTE | 2021-05-12 07:43 | Diagnostic Imaging Report ---
PROCEDURE: CT angiography of the chest with contrast. TECHNIQUE: Multiple contiguous axial images were obtained through the chest after uneventful bolus administration of intravenous contrast. 3D reconstructed CTA MIP acquisitions were also performed. Auto Exposure Controls were utilized during the CT exam to meet ALARA standards for radiation dose reduction. INDICATION: Shortness of breath, tachycardia, elevated d-dimer COMPARISON: Chest x-ray from the same day FINDINGS: The pulmonary arteries are diagnostic to the segmental level. No filling defects are seen to indicate a pulmonary embolus. The aorta is normal in caliber. The heart is normal in size. There is no pericardial effusion. There are prominent mediastinal and right hilar lymph nodes. A marker node measuring 1.4 cm in short axis is seen on image 68, series 5). There is no pleural effusion or pneumothorax. There are multifocal groundglass and airspace opacities, predominantly in the lung bases. There is no pleural effusion or pneumothorax. No acute osseous abnormality is seen. Imaged portions of the upper abdomen demonstrate no acute abnormality. There is a small enhancing focus in the medial right liver measuring about a centimeter in size which may represent a flash filling hemangioma, appear stable since 2019. IMPRESSION: 1. No pulmonary embolus. 2. Multifocal groundglass and airspace opacities, mostly in the lung bases, consistent with infection. 3. Mildly prominent mediastinal and right hilar lymph nodes, most likely reactive. Dictated by: Dictated on workstation # [id number]
[2021-05-12 08:45] VITALS: BP 141/90
== END 2021-05-12 08:45 | disposition home or self-care (01) ==
LOC: EDUNIT# 05:28 → ER FS 05:36
DX: U07.1 COVID-19 (principal); I10 Essential (primary) hypertension; E66.9 Obesity, unspecified; F17.210 Nicotine dependence, cigarettes, uncomplicated; Z68.35 Body mass index [BMI] 35.0-35.9, adult
CPT/HCPCS: 36415; 71045; 71275; 80053; 81000; 83605; 83880; 84484; 85025; 85379; 85610; 85730; 86141; 87040; 93005; 93041

== ENCOUNTER 2022-01-18 16:11 | Emergency (ER) | payer SELFPAY ==
[~2022-01-18] VITALS: Ht 185.5 cm; Wt 125.3 kg
[~2022-01-18 16:11] MED LIST changes: +CYCL10TA25 PO; -CYCL10TA9 PO
[2022-01-18] MEDS ORDERED: LACTATED RINGERS 1,000 ML IV ONE (16:15)
[2022-01-18] MEDS ORDERED: KETOROLAC 30 MG/ML VIAL IVP ONE ×2 (16:15→16:30)
[2022-01-18 16:23] LABS: BILIRUBIN,URINE NEGATIVE (NEGATIVE); CLARITY,URINE CLEAR; COLOR,URINE YELLOW; GLUCOSE, URINE (UA) NEGATIVE (NEGATIVE); KETONES,URINE NEGATIVE (NEGATIVE); LEUKOCYTE ESTERASE ,URINE NEGATIVE (NEGATIVE); NITRITE,URINE NEGATIVE (NEGATIVE); PROTEIN,URINE NEGATIVE (NEGATIVE)
[2022-01-18 16:27] LABS: BACTERIA,URINE TRACE /HPF; RBC,URINE 0-2 /HPF
[2022-01-18 16:35] LABS: BASOPHILS % (AUTO) 1 % (0-10); EOSINOPHILS # (AUTO) 0.2 10^3/uL (0.0-0.3); EOSINOPHILS % (AUTO) 3 % (0-10); HEMATOCRIT 45 % (40-54); HEMOGLOBIN 15.5 g/dL (13.3-17.7); LYMPHOCYTES # (AUTO) 1.6 10^3/uL (1.0-4.0); LYMPHOCYTES % (AUTO) 18 % (12-44); MEAN CORPUSCULAR HEMOGLOBIN 30 pg (25-34); MEAN CORPUSCULAR HGB CONC 35 g/dL (32-36); MEAN CORPUSCULAR VOLUME 88 fL (80-99); MEAN PLATELET VOLUME 10.6 fL (9.0-12.2); MONOCYTES # (AUTO) 0.6 10^3/uL (0.0-1.0); MONOCYTES % (AUTO) 7 % (0-12); NEUTROPHILS % (AUTO) 71 % (42-75); PLATELET COUNT 255 10^3/uL (130-400); WHITE BLOOD COUNT 8.5 10^3/uL (4.3-11.0)
[2022-01-18 16:55] LABS: ALBUMIN 4.4 GM/DL (3.2-4.5); BILIRUBIN,TOTAL 0.2 MG/DL (0.1-1.0); CALCIUM 9.2 MG/DL (8.5-10.1); CREATININE SERUM 1.66 MG/DL (0.60-1.30); TOTAL PROTEIN 7.7 GM/DL (6.4-8.2)
--- NOTE | 2022-01-18 17:01 | Diagnostic Imaging Report ---
EXAMINATION: CT abdomen and pelvis without contrast. TECHNIQUE: Multiple contiguous axial images were obtained through the abdomen and pelvis without the use of intravenous contrast. All CT scans use one or more of the following dose optimizing techniques: automated exposure control, MA and/or KvP adjustment based on patient size and exam type or iterative reconstruction. HISTORY: Left flank pain. COMPARISON: 08/01/2020. FINDINGS: Lung bases: The lung bases are clear. Solid organs: The liver is normal. The gallbladder is normal. There is no biliary ductal dilation. Pancreas is normal. Spleen is normal. Adrenal glands are normal. There is a 0.6 cm calculus within the proximal left ureter resulting in mild left hydronephrosis. Additional bilateral nonobstructing renal calculi measuring up to 0.6 cm. Bowel: The stomach and small bowel are normal without obstruction. The colon and appendix are normal. Peritoneum: There is no intraperitoneal free fluid or free air. No suspicious lymphadenopathy. Vasculature: Normal without aneurysm. Musculoskeletal: No suspicious osseous lesion or compression fracture. Pelvis: The prostate gland is normal. The urinary bladder is normal. IMPRESSION: 1. A 0.6 cm calculus within the proximal left ureter resulting in mild left hydronephrosis. 2. Additional nonobstructing bilateral renal calculi measuring up to 0.6 cm. Dictated by: Dictated on workstation # [id number]
[2022-01-18] MEDS ORDERED: cefTRIAXone 1 GM PRE-MIX 50 ML IV STA (17:34)
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
--- NOTE | 2022-01-18 17:51 | Diagnostic Imaging Report ---
HISTORY: Ureteral stone. COMPARISON: CT from the same day. TECHNIQUE: Frontal view of the abdomen. FINDINGS: The obstructing 6 mm calculus seen on the prior CT is visible radiographically, adjacent to the left L2 transverse process. There are additional nonobstructing calculi in the kidneys. No distended loops of bowel are seen. There is no large collection of free air. There is a phlebolith in the pelvis. IMPRESSION: Obstructing calculus in the proximal left ureter seen on the prior CT it is visible radiographically. Dictated by: Dictated on workstation # [id number]
[2022-01-18] MEDS ORDERED: TMSL.4C PO (17:56)
[2022-01-18] MEDS ORDERED: SULF1TAB38 PO (17:56)
[2022-01-18] MEDS ORDERED: ONDA4TAB11 SL (17:56)
[2022-01-18] MEDS ORDERED: OXYC1TAB87 PO (17:56)
[2022-01-18] MEDS ORDERED: TRAM-42 PO (17:56)
[2022-01-18 18:25] VITALS: BP 139/96
== END 2022-01-18 18:25 | disposition home or self-care (01) ==
LOC: EDUNIT# 16:11 → ER FS 16:12
DX: N13.2 Hydronephrosis with renal and ureteral calculous obstruction (principal); F17.210 Nicotine dependence, cigarettes, uncomplicated; Z88.5 Allergy status to narcotic agent
CPT/HCPCS: 36415; 74018; 74176; 80053; 81000; 83690; 85025

== ENCOUNTER 2022-07-06 15:06 | Emergency (ER) | payer SELFPAY ==
[~2022-07-06] VITALS: Ht 185 cm; Wt 125.0 kg
[~2022-07-06 15:06] MED LIST changes: +ONDA4TAB11 SL; +OXYC1TAB87 PO; +SULF1TAB38 PO; +TRAM-42 PO
[2022-07-06 15:15] VITALS: BP 133/67
[2022-07-06 15:31] LABS: BILIRUBIN,URINE 3+ (NEGATIVE); GLUCOSE, URINE (UA) TRACE (NEGATIVE); KETONES,URINE TRACE (NEGATIVE); LEUKOCYTE ESTERASE ,URINE 1+ (NEGATIVE); NITRITE,URINE POSITIVE (NEGATIVE); PH,URINE 6.5 (5-9); PROTEIN,URINE 3+ (NEGATIVE)
[2022-07-06 15:42] LABS: BACTERIA,URINE FEW /HPF; CLARITY,URINE CLOUDY; COLOR,URINE RED; RBC,URINE >100 /HPF
--- NOTE | 2022-07-06 15:57 | Diagnostic Imaging Report ---
PROCEDURE: CT urinary tract, rule out kidney stone. TECHNIQUE: Multiple contiguous axial images were obtained through the abdomen and pelvis without the use of intravenous contrast. Auto Exposure Controls were utilized during the CT exam to meet ALARA standards for radiation dose reduction. INDICATION: Hematuria and right flank pain. COMPARISON: Correlation is made with prior CT from 01/18/2022. FINDINGS: Lung bases are clear. The liver and gallbladder are unremarkable. There is no biliary ductal dilatation. The pancreas and spleen are unremarkable. No adrenal mass is detected. Both kidneys contain nonobstructing calculi. There is a 3 to 4 mm calculus in the proximal right ureter producing mild hydroureteronephrosis. The remainder of the right ureter as well as the left ureter are unremarkable. The bladder is decompressed. The aorta is nonaneurysmal. Bowel loops are nondilated. There is no free fluid in the abdomen or pelvis. Prostate is unremarkable. IMPRESSION: Bilateral nonobstructing nephrolithiasis. In addition, there is a 3 to 4 mm proximal right ureteric calculus producing moderate hydroureteronephrosis. Dictated by: Dictated on workstation # [id number]
--- NOTE | 2022-07-06 16:01 | ED GU-Male ---
General Chief Complaint: - Reproductive Stated Complaint: HEMATURIA; RT FLANK PAIN Nursing Triage Note: Patient has ambulated to ER with cc of blood in his urine. Patient reports that last night he pain in his right flank last night. He had taken hydrocodone for the pain and he has had no pain today. This afternoon he went to the bathroom and had blood in his urine. Source: patient Exam Limitations: no limitations History of Present Illness Date Seen by Provider: Jul 06, 2022 Time Seen by Provider: 15:21 Initial Comments 42-year-old male patient with history of hypertension and kidney stones presented POV with complaining of bloody urine. Patient states he had right flank pain last night like his previous episode of kidney stone and took hydrocodone with resolving the pain. Patient states he had 2 episodes of gross hematuria prior to arrival to ER without flank pain, nausea and vomiting, dysuria, frequency, fever and chills, abdominal pain. Patient states he usually did not have hematuria after passing kidney stone. Timing/Duration: this afternoon Prior Genitourinary Problems: similar symptoms Allergies and Home Medications Allergies Coded Allergies: codeine (Verified Allergy, Intermediate, 12/26/19) erythromycin base (Verified Allergy, Unknown, 12/26/19) Patient Home Medication List Home Medication List Reviewed: Yes Albuterol Sulfate (Proair Hfa) 1 Puff Puff, 2 PUFF IH Q4H Prescribed by: KEELEY REBOLLEDO on 05/06/21 1130 Amoxicillin/Potassium Clav (Augmentin 875-125 Tablet) 1 Each Tablet, 1 EACH PO BID Prescribed by: DONAVAN THOMAS on 12/26/192023 Azithromycin (Azithromycin) 500 Mg Tablet, 500 MG PO DAILY Prescribed by: KEELEY REBOLLEDO on 05/06/21 1129 Ciprofloxacin HCl (Cipro) 250 Mg Tablet, 250 MG PO Q12H Prescribed by: Noris soler on 07/06/22 1616 Cyclobenzaprine HCl (Cyclobenzaprine HCl) 10 Mg Tablet, 10 MG PO Q8H PRN for SPASMS Prescribed by: CRUZ AGEE on 08/01/20 0843 Ibuprofen (Ibuprofen) 800 Mg Tablet, 800 MG PO Q8H PRN for PAIN Prescribed by: Noris soler on 07/06/22 1616 Ondansetron (Ondansetron Odt) 4 Mg Tab.rapdis, 4 MG PO Q6H Prescribed by: CRUZ AGEE on 05/24/19 145 Ondansetron (Ondansetron Odt) 4 Mg Tab.rapdis, 4 MG SL Q4H PRN for NAUSEA-1ST LINE Prescribed by: INDIA CHRISTIE on 01/18/221755 Oxycodone HCl/Acetaminophen (Percocet 10-325 mg Tablet) 1 Each Tablet, 1 TAB PO Q8H PRN for PAIN-MODERATE Prescribed by: CRUZ AGEE on 05/24/19 145 Oxycodone HCl/Acetaminophen (Percocet 5-325 mg Tablet) 1 Each Tablet, 1 TAB PO Q4H PRN for PAIN-BREAKTHROUGH Prescribed by: INDIA CHRISTIE on 01/18/221756 Sulfamethoxazole/Trimethoprim (Bactrim Ds Tablet) 1 Each Tablet, 1 EACH PO BID Prescribed by: INDIA CHRISTIE on 01/18/221755 Tamsulosin HCl (Flomax) 0.4 Mg Cap, 0.4 MG PO DAILY Prescribed by: CRUZ AGEE on 05/24/191454 Tamsulosin HCl (Flomax) 0.4 Mg Cap, 0.4 MG PO DAILY Prescribed by: INDIA CHRISTIE on 01/18/221755 Tamsulosin HCl (Flomax) 0.4 Mg Cap, 0.4 MG PO DAILY Prescribed by: Noris soler on 07/06/22 161 Tramadol HCl (Ultram) 50 Mg Tablet, 50-100 MG PO Q6H PRN for PAIN-MODERATE (5-7) Prescribed by: INDIA CHRISTIE on 01/18/221756 Review of Systems Review of Systems Constitutional: see HPI EENTM: see HPI Respiratory: see HPI Cardiovascular: see HPI Gastrointestinal: see HPI Genitourinary: see HPI Musculoskeletal: see HPI Skin: see HPI Psychiatric/Neurological: See HPI Endocrine: See HPI Hematologic/Lymphatic: See HPI All Other Systemes Reviewed Negative Unless Noted: Yes Past Dokhrfg-Gpenqn-Pnjzet Hx Patient Social History Tobacco Use?: Yes Tobacco type used: Cigarettes Use of E-Cig and/or Vaping dev: No Substance use?: No Alcohol Use?: Yes Alcohol Frequency: Once in a while Seasonal Allergies Seasonal Allergies: No Past Medical History Surgery/Hospitalization HX: Hx of HTN Surgeries: No Respiratory: Yes (chronic cough) Cardiac: Yes Hypertension Neurological: No Genitourinary: No Kidney Stones Gastrointestinal: No Musculoskeletal: No Endocrine: Yes (hypoglycemia) HEENT: No Cancer: No Psychosocial: No Integumentary: No Blood Disorders: No Physical Exam Vital Signs Vital Signs - First Documented 07/06/22 15:15 Temp 36.2 Pulse 115 Resp 16 B/P (MAP) 133/67 (89) Pulse Ox 95 O2 Delivery Room Air Capillary Refill : Height, Weight, BMI Height: '" Weight: lbs. oz. kg; 36.00 BMI Method: General Appearance: WD/WN HEENT: PERRL/EOMI, normal ENT inspection Neck: non-tender, full range of motion, supple Cardiovascular: no edema, no gallop, no JVD, tachycardia Respiratory: chest non-tender, lungs clear, normal breath sounds, no respiratory distress, no accessory muscle use Gastrointestinal: normal bowel sounds, non tender, soft, no organomegaly, no pulsatile mass Back: normal inspection, no CVA tenderness, no vertebral tenderness Extremities: normal range of motion, non-tender Neurologic/Psychiatric: alert, normal mood/affect, oriented x 3 Skin: normal color, warm/dry Lymphatic: no adenopathy Progress/Results/Core Measures Suspected Sepsis SIRS Temperature: Pulse: 115 Respiratory Rate: 16 Blood Pressure 133 /67 Mean: 89 Results/Orders Lab Results Laboratory Tests Test 07/06/22 15:20 Range/Units Urine Color RED H Urine Clarity CLOUDY Urine pH 6.5 5-9 Urine Specific [place] 1.025 H 1.016-1.022 Urine Protein 3+ H NEGATIVE Urine Glucose (UA) TRACE H NEGATIVE Urine Ketones TRACE H NEGATIVE Urine Nitrite POSITIVE H NEGATIVE Urine Bilirubin 3+ H NEGATIVE Urine Urobilinogen 2.0 < = 1.0 MG/DL Urine Leukocyte Esterase 1+ H NEGATIVE Urine RBC (Auto) 3+ H NEGATIVE Urine RBC >100 H /HPF Urine WBC NONE /HPF Urine Squamous Epithelial Cells 2-5 /HPF Urine Crystals NONE /LPF Urine Bacteria FEW H /HPF Urine Casts NONE /LPF Urine Mucus NEGATIVE /LPF Urine Culture Indicated YES My Orders Orders - NORIS SOLER MD Urinalysis (07/06/22 15:09) Ct Abd/Pelvis Wo(Kidney Stone) (07/06/22 15:29) Urine Culture (07/06/22 15:20) Vital Signs/I&O 07/06/22 15:15 Temp 36.2 Pulse 115 Resp 16 B/P (MAP) 133/67 (89) Pulse Ox 95 O2 Delivery Room Air Capillary Refill : Blood Pressure Mean: 89 Progress Note : Progress Note Evaluation of patient in ER showed 42-year-old male patient with complaining of 1 episode of right flank pain last night and hematuria today. Patient has history of past kidney stones previously. Patient had unremarkable physical exam except for heart rate of 115 and he stated he has had history of tachycardia without abnormal pathology finding. Patient also has history of hypertension without taking medication and her blood pressure of 133/67. Urine showed hematuria and UTI. CT abdomen pelvis showed 3 to 4 mm right upper ureteric stone with moderate hydronephrosis. Patient also had bilateral nephrolithiasis. Patient informed about test result and needs to follow-up with urologist and primary care physician for high blood pressure work-up. Patient advised to record his blood pressure. Patient advised to strain his urine and increase fluid intake and avoid of drinking lots of coffee. Patient also advised to quit smoking. Patient did not have pain in ER. Diagnostic Imaging Diagonstic Imaging: CT Comments CT abdomen pelvis interpreted by radiologist and reviewed by me and showed: NAME: UVAL[facility]LLINS [facility] REC#: [id number] PT STATUS: REG ER : 1980 PHYSICIAN: NORIS SOLER MD ADMIT DATE: 07/06/22/ER FS Draft Date of Exam:07/06/22 CT ABD/PELVIS WO(KIDNEY STONE) PROCEDURE: CT urinary tract, rule out kidney stone. TECHNIQUE: Multiple contiguous axial images were obtained through the abdomen and pelvis without the use of intravenous contrast. Auto Exposure Controls were utilized during the CT exam to meet ALARA standards for radiation dose reduction. INDICATION: Hematuria and right flank pain. COMPARISON: Correlation is made with prior CT from 01/18/2022. FINDINGS: Lung bases are clear. The liver and gallbladder are unremarkable. There is no biliary ductal dilatation. The pancreas and spleen are unremarkable. No adrenal mass is detected. Both kidneys contain nonobstructing calculi. There is a 3 to 4 mm calculus in the proximal right ureter producing mild hydroureteronephrosis. The remainder of the right ureter as well as the left ureter are unremarkable. The bladder is decompressed. The aorta is nonaneurysmal. Bowel loops are nondilated. There is no free fluid in the abdomen or pelvis. Prostate is unremarkable. IMPRESSION: Bilateral nonobstructing nephrolithiasis. In addition, there is a 3 to 4 mm proximal right ureteric calculus producing moderate hydroureteronephrosis. Dictated on workstation # [id number] Dict: 07/06/22 1553 Trans: 07/06/22 1556 [id number] Interpreted by: NICHOLAS MASON MD Electronically signed by: Departure Impression Primary Impression: Ureterolithiasis Additional Impressions: Gross hematuria Urinary tract infection Qualified Codes: N39.0 - Urinary tract infection, site not specified; R31.9 - Hematuria, unspecified Disposition: 01 HOME, SELF-CARE Condition: Stable Departure-Patient Inst. Decision time for Depature: 16:14 Referrals: NO,LOCAL PHYSICIAN (PCP) Primary Care Physician MYKE MOSES MD Patient Instructions: Blood in the Urine (Hematuria) in Adults, Kidney Stone Diet, Kidney Stones (DC), Quitting Smoking ED, Urinary Tract Infections in Adults Add. Discharge Instructions: Drink plenty of liquid Strain your urine Follow-up with Dr. MOSES on-call urologist in 2 to 3 days Quit smoking Return to ER as needed All discharge instructions reviewed with patient and/or family. Voiced understanding. Scripts Ciprofloxacin HCl (Cipro) 250 Mg Tablet 250 MG PO Q12H, #10 TAB Prov: NORIS SOLER MD 07/06/22 Tamsulosin HCl (Flomax) 0.4 Mg Cap 0.4 MG PO DAILY, #14 CAP Prov: NORIS SOLER MD 07/06/22 Ibuprofen (Ibuprofen) 800 Mg Tablet 800 MG PO Q8H PRN for PAIN, #30 TAB 0 Refills Prov: NORIS SOLER MD 07/06/22 NORIS SOLER MD Jul 06, 2022 16:01
[2022-07-06] MEDS ORDERED: IBUP-1780 PO (16:16)
[2022-07-06] MEDS ORDERED: TMSL.4C PO (16:16)
[2022-07-06] MEDS ORDERED: CIPR-226 PO (16:16)
== END 2022-07-06 16:20 | disposition home or self-care (01) ==
LOC: EDUNIT# 15:06 → ER FS 15:08
DX: N13.2 Hydronephrosis with renal and ureteral calculous obstruction (principal); N39.0 Urinary tract infection, site not specified; F17.210 Nicotine dependence, cigarettes, uncomplicated; Z28.310 Unvaccinated for COVID-19
CPT/HCPCS: 74176; 81000; 87088